=== PATIENT | female | born 1965 | race Caucasian/White ===

== ENCOUNTER → 2018-07-14 12:44 | Outpatient (CLI) | payer BC, SELFPAY ==
--- NOTE | 2018-07-14 | DI.RAD.S_ITS ---
PROCEDURE: XR FOOT RT MIN 3V INDICATIONS: right foot pain TECHNIQUE: 3 views of the foot were acquired. COMPARISON: None. FINDINGS: Bones: No fractures or dislocations. No suspicious bony lesions. Posterior calcaneal spurring. There is mild plantar flexion of the talus however the calcaneal pitch measures 17?. No definite hallux valgus. There is mild first MTP joint degeneration Soft tissues: No tibiotalar joint effusion. Achilles tendon appears normal. IMPRESSION: Posterior calcaneal spurring. Mild first MTP joint degeneration. Borderline pes planus No hallux valgus. Dictated by: Jono Estes M.D. on 07/14/2018 at 14:10 Approved by: Jono Estes M.D. on 07/14/2018 at 14:14
== END ==
PROVIDERS: Family Provider Physician Assistant; PCP Physician Assistant; Visit Provider Nurse Practitioner Family
DX: M79.671 Pain in right foot (principal); M77.31 Calcaneal spur, right foot; M19.071 Primary osteoarthritis, right ankle and foot
CPT/HCPCS: 73630

== ENCOUNTER 2019-03-23 07:30 | Outpatient (RCR) | payer BC, SELFPAY ==
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
--- NOTE | 2018-08-30 09:00 | PT.OPPOC ---
Current Diagnoses Unspecified dyspareunia (08/30/18) Vulvodynia, unspecified (08/30/18) Provider Visit Care Team Role Provider Type Elisabeth Kennedy PA-C Primary Care Provider Advanced Senior Controller Specialty: Family Practice Address: [address] [place] [address], [id number] Email: [email or web address] ADARSH Arenas Attending Provider Non-Staff Specialty: Medical Address: [address] [place] [address], [id number] Email: Plan Of Care PT-OP-T Assessment and Plan Start: 07/13/18 17:40 Freq: Status: Active Protocol: Document 08/30/18 09:00 AMB (Rec: 08/30/18 09:46 AMB [id number]) Physical Therapy Assessment Goals Three Impairment pelvic pain with intercourse Senior Living Goal (LTG) Shira is able to return to intercourse with her without complaints of pelvic pain or bladder spasms-- PROGRESS MADE LTG Duration 8 weeks Two Impairment pelvic floor weakness Senior Living Goal (LTG) After her pelvic floor is able to relax, Shira is able to tolerate a pelvic floor strengthening program for improved bladder support-- PROGRESS MADE LTG Duration 8 weeks One Impairment hypertonicity and guarding of the left lateral wall of the levator ani Short Term Goal (STG) Rosalina is able to fully relax her pelvic floor to decrease muscle guarding and pain and to begin to tolerate pelvic floor strengthening-- PROGRESS MADE STG Duration 6 weeks Assessment Summary Assessment Shira states that she is improving with PT, but continues to have pain with intercourse. Bladder spasms are seeming to improve, but adductor pain has been continuing. Pt has stopped core exercises, and now we are going to try to add some back in for her low back discmfort , without increasing her pelvic floor pain. Pt will benefit from continued PT as her left pelvic floor continues to be tight and painful, although it will relax with treatment and that relaxation has bee increasing in time between therapy sessions. Physical Therapy Plan Frequency and Duration Frequency of Treatment 1x/Week Duration of Treatment 8 weeks Plan of Care Start Date 08/30/18 Plan of Care End Date 10/25/18 Therapeutic Interventions Therapeutic Interventions Home Exercise Program Manual Therapy Neuromuscular Re-education Patient/Caregiver Education Self-Care/Home Management Soft Tissue Mobilization Therapeutic Exercises Modalities Biofeedback Next Visit Focus/Plan Next Note Type Treatment Note Next Visit Plan Try to slowly add in stabilization exercises with maintaining relaxation. Plan of Care Dates Plan of Care Start Date 08/30/18 Plan of Care End Date 10/25/18 Please Sign and Return: I have reviewed this Plan of Care and certify that the skilled therapy services above are required to meet the patient?s needs. Physician Signature Date Printed Name and Credentials Clinical Instructor Signature Printed Name and Credentials
--- NOTE | 2018-08-30 09:00 | PT.OTN ---
Current Diagnoses Unspecified dyspareunia (08/30/18) Vulvodynia, unspecified (08/30/18) Physical Therapy Treatment Note PT-OP-A Visit Information Start: 07/13/18 17:40 Freq: Status: Active Protocol: Document 08/30/18 09:00 AMB (Rec: 08/30/18 09:21 AMB [id number]) Out-Patient Physical Therapy Visit Information Visit Information Visit Type Progress Note Visit Start Time 09:00 Visit Stop Time 09:45 Total Visit Minutes 45 Visit Number 6 PT-OP-B Current Condition Start: 07/13/18 17:40 Freq: Status: Active Protocol: Document 07/18/18 17:03 AMH (Rec: 07/18/18 17:21 AMH [email or web address]) Current Condition History of Current Condition Onset Date chronic symptoms 20 years ago Current Complaints pelvic pain, bladder spasm, dyspareunia History of Current Condition Shira reports she had a hysterectomy at age 39 and had a infection following the hysterectomy that took 4-6 months to heal. She had to have a chemical burn treatment to help clear the infection and this caused a great deal of scar tissue on the left side of her pelvic wall. She reports since that time it feels like her bladder will spasm following intercourse and if she has waited too long to void. PT-OP-C Subjective Start: 07/13/18 17:40 Freq: Status: Active Protocol: Document 08/30/18 09:00 AMB (Rec: 08/30/18 09:21 AMB [id number]) OP-PT Subjective Patient Comments Patient Comments Pt feels she is about 30% improved. PT-OP-I Pelvic Floor Start: 07/13/18 17:40 Freq: Status: Active Protocol: Document 07/11/18 17:41 AMH (Rec: 07/13/18 18:06 AMH [email or web address]) Pelvic Floor Assessment Pelvic Clock Pelvic Clock 12-3 Guarding Pelvic Clock 3-6 Hypertonic Pelvic Clock 6-9 Guarding Pelvic Clock Other Shira is able to contract her pelvic floor but has a difficult time relaxing following a contraction. She is hypertonic in the left illiococcygeus Contraction Ability Manual Muscle Testing Left 3 Manual Muscle Testing Right 3 Manual Muscle Testing Anterior 3 Manual Muscle Testing Posterior 3 PT-OP-Q Treatments Start: 07/13/18 17:40 Freq: Status: Active Protocol: Document 08/30/18 09:00 AMB (Rec: 08/30/18 09:46 AMB [id number]) Manual Therapy Treatment Soft Tissue Mobilization 3 Body Location hip flexor release 2 Body Location MFR at the inferior gluteal fold 1 Body Location MFR for the left illiococcygeus PT-OP-T Assessment and Plan Start: 07/13/18 17:40 Freq: Status: Active Protocol: Document 08/30/18 09:00 AMB (Rec: 08/30/18 09:46 AMB [id number]) Physical Therapy Assessment Goals Three Impairment pelvic pain with intercourse Tire Service Technician Goal (LTG) Shira is able to return to intercourse with her without complaints of pelvic pain or bladder spasms-- PROGRESS MADE LTG Duration 8 weeks Two Impairment pelvic floor weakness Half-Way Goal (LTG) After her pelvic floor is able to relax, Shira is able to tolerate a pelvic floor strengthening program for improved bladder support-- PROGRESS MADE LTG Duration 8 weeks One Impairment hypertonicity and guarding of the left lateral wall of the levator ani Short Term Goal (STG) Rosalina is able to fully relax her pelvic floor to decrease muscle guarding and pain and to begin to tolerate pelvic floor strengthening-- PROGRESS MADE STG Duration 6 weeks Assessment Summary Assessment Shira states that she is improving with PT, but continues to have pain with intercourse. Bladder spasms are seeming to improve, but adductor pain has been continuing. Pt has stopped core exercises, and now we are going to try to add some back in for her low back discmfort , without increasing her pelvic floor pain. Pt will benefit from continued PT as her left pelvic floor continues to be tight and painful, although it will relax with treatment and that relaxation has bee increasing in time between therapy sessions. Physical Therapy Plan Frequency and Duration Frequency of Treatment 1x/Week Duration of Treatment 8 weeks Plan of Care Start Date 08/30/18 Plan of Care End Date 10/25/18 Therapeutic Interventions Therapeutic Interventions Home Exercise Program Manual Therapy Neuromuscular Re-education Patient/Caregiver Education Self-Care/Home Management Soft Tissue Mobilization Therapeutic Exercises Modalities Biofeedback Next Visit Focus/Plan Next Note Type Treatment Note Next Visit Plan Try to slowly add in stabilization exercises with maintaining relaxation.
--- NOTE | 2018-09-13 16:20 | PT.OTN ---
Current Diagnoses Unspecified dyspareunia (09/13/18) Vulvodynia, unspecified (09/13/18) Physical Therapy Treatment Note PT-OP-A Visit Information Start: 07/13/18 17:40 Freq: Status: Active Protocol: Document 09/13/18 09:00 AMB (Rec: 09/13/18 12:59 AMB [email or web address]) Out-Patient Physical Therapy Visit Information Visit Information Visit Type Treatment Note Visit Start Time 09:00 Visit Stop Time 09:45 Total Visit Minutes 45 Visit Number 7 Evaluation Information Evaluation Date 07/11/18 PT-OP-B Current Condition Start: 07/13/18 17:40 Freq: Status: Active Protocol: Document 07/18/18 17:03 AMH (Rec: 07/18/18 17:21 AMH [email or web address]) Current Condition History of Current Condition Onset Date chronic symptoms 20 years ago Current Complaints pelvic pain, bladder spasm, dyspareunia History of Current Condition Shira reports she had a hysterectomy at age 39 and had a infection following the hysterectomy that took 4-6 months to heal. She had to have a chemical burn treatment to help clear the infection and this caused a great deal of scar tissue on the left side of her pelvic wall. She reports since that time it feels like her bladder will spasm following intercourse and if she has waited too long to void. PT-OP-C Subjective Start: 07/13/18 17:40 Freq: Status: Active Protocol: Document 09/13/18 09:00 AMB (Rec: 09/13/18 12:59 AMB [email or web address]) OP-PT Subjective Patient Comments Patient Comments Pt reports she fell and hurt her low back/ SI. So she has been stretching, she does feel that is helpful. PT-OP-I Pelvic Floor Start: 07/13/18 17:40 Freq: Status: Active Protocol: Document 07/11/18 17:41 AMH (Rec: 07/13/18 18:06 AMH [email or web address]) Pelvic Floor Assessment Pelvic Clock Pelvic Clock 12-3 Guarding Pelvic Clock 3-6 Hypertonic Pelvic Clock 6-9 Guarding Pelvic Clock Other Shira is able to contract her pelvic floor but has a difficult time relaxing following a contraction. She is hypertonic in the left illiococcygeus Contraction Ability Manual Muscle Testing Left 3 Manual Muscle Testing Right 3 Manual Muscle Testing Anterior 3 Manual Muscle Testing Posterior 3 PT-OP-Q Treatments Start: 07/13/18 17:40 Freq: Status: Active Protocol: Document 09/13/18 09:00 AMB (Rec: 09/13/18 16:20 AMB [email or web address]) Therapeutic Exercises Supine Exercises 4 Supine Exercise Name hamstring adductor stretch 3 Supine Exercise Name iliopsoas stretch in nilesh test position Other Exercises 1 Other Exercise Name quadruped TrA Manual Therapy Treatment Soft Tissue Mobilization 3 Body Location hip flexor release 1 Body Location MFR for the left illiococcygeus Manual Techniques 1 Type pelvic floor contract relax with manual stretching PT-OP-T Assessment and Plan Start: 07/13/18 17:40 Freq: Status: Active Protocol: Document 09/13/18 09:00 AMB (Rec: 09/13/18 16:20 AMB [email or web address]) Physical Therapy Assessment Assessment Summary Assessment Pt continues to have L sided tightness, but considering her other orthopedic conditions is doing well. Did not progress significantly due to increased low back/ si pain. Physical Therapy Plan Next Visit Focus/Plan Next Note Type Treatment Note Next Visit Plan Progress stabilization exercises as tolerated
--- NOTE | 2018-09-20 15:43 | PT.OTN ---
Current Diagnoses Unspecified dyspareunia (09/20/18) Vulvodynia, unspecified (09/20/18) Physical Therapy Treatment Note PT-OP-A Visit Information Start: 07/13/18 17:40 Freq: Status: Active Protocol: Document 09/20/18 09:00 AMB (Rec: 09/20/18 09:08 AMB [id number]) Out-Patient Physical Therapy Visit Information Visit Information Visit Type Treatment Note Visit Start Time 09:00 Visit Stop Time 09:45 Total Visit Minutes 45 Visit Number 8 PT-OP-B Current Condition Start: 07/13/18 17:40 Freq: Status: Active Protocol: Document 07/18/18 17:03 AMH (Rec: 07/18/18 17:21 AMH [email or web address]) Current Condition History of Current Condition Onset Date chronic symptoms 20 years ago Current Complaints pelvic pain, bladder spasm, dyspareunia History of Current Condition Shira reports she had a hysterectomy at age 39 and had a infection following the hysterectomy that took 4-6 months to heal. She had to have a chemical burn treatment to help clear the infection and this caused a great deal of scar tissue on the left side of her pelvic wall. She reports since that time it feels like her bladder will spasm following intercourse and if she has waited too long to void. PT-OP-C Subjective Start: 07/13/18 17:40 Freq: Status: Active Protocol: Document 09/20/18 09:00 AMB (Rec: 09/20/18 09:08 AMB [id number]) OP-PT Subjective Patient Comments Patient Comments Tightness in inner thigh continues from back pain increase. More ability to relax after Kegel. PT-OP-I Pelvic Floor Start: 07/13/18 17:40 Freq: Status: Active Protocol: Document 07/11/18 17:41 AMH (Rec: 07/13/18 18:06 AMH [email or web address]) Pelvic Floor Assessment Pelvic Clock Pelvic Clock 12-3 Guarding Pelvic Clock 3-6 Hypertonic Pelvic Clock 6-9 Guarding Pelvic Clock Other Shira is able to contract her pelvic floor but has a difficult time relaxing following a contraction. She is hypertonic in the left illiococcygeus Contraction Ability Manual Muscle Testing Left 3 Manual Muscle Testing Right 3 Manual Muscle Testing Anterior 3 Manual Muscle Testing Posterior 3 PT-OP-Q Treatments Start: 07/13/18 17:40 Freq: Status: Active Protocol: Document 09/20/18 09:00 AMB (Rec: 09/20/18 15:43 AMB [email or web address]) Therapeutic Exercises Supine Exercises 4 Supine Exercise Name hamstring adductor stretch 3 Supine Exercise Name iliopsoas stretch in nilesh test position Manual Therapy Treatment Soft Tissue Mobilization 3 Body Location hip flexor release 1 Body Location MFR for the left illiococcygeus PT-OP-T Assessment and Plan Start: 07/13/18 17:40 Freq: Status: Active Protocol: Document 09/20/18 09:00 AMB (Rec: 09/20/18 15:43 AMB [email or web address]) Physical Therapy Assessment Assessment Summary Assessment Pain is centralizing well, but continues to have radiating pain into abdomen with deep palpation of iliococcygeus Physical Therapy Plan Frequency and Duration Frequency of Treatment 1x/Week Duration of Treatment 8 weeks Plan of Care Start Date 08/30/18 Plan of Care End Date 10/25/18 Next Visit Focus/Plan Next Note Type Treatment Note Next Visit Plan Progress stabilization exercises as tolerated
--- NOTE | 2018-09-27 10:04 | PT.OTN ---
Current Diagnoses Unspecified dyspareunia (09/27/18) Vulvodynia, unspecified (09/27/18) Physical Therapy Treatment Note PT-OP-A Visit Information Start: 07/13/18 17:40 Freq: Status: Active Protocol: Document 09/27/18 09:00 AMB (Rec: 09/27/18 10:02 AMB [email or web address]) Out-Patient Physical Therapy Visit Information Visit Information Visit Type Treatment Note Visit Start Time 09:00 Visit Stop Time 09:45 Total Visit Minutes 45 Visit Number 9 Evaluation Information Evaluation Date 07/11/18 PT-OP-B Current Condition Start: 07/13/18 17:40 Freq: Status: Active Protocol: Document 07/18/18 17:03 AMH (Rec: 07/18/18 17:21 AMH [email or web address]) Current Condition History of Current Condition Onset Date chronic symptoms 20 years ago Current Complaints pelvic pain, bladder spasm, dyspareunia History of Current Condition Shira reports she had a hysterectomy at age 39 and had a infection following the hysterectomy that took 4-6 months to heal. She had to have a chemical burn treatment to help clear the infection and this caused a great deal of scar tissue on the left side of her pelvic wall. She reports since that time it feels like her bladder will spasm following intercourse and if she has waited too long to void. PT-OP-C Subjective Start: 07/13/18 17:40 Freq: Status: Active Protocol: Document 09/27/18 09:00 AMB (Rec: 09/27/18 10:02 AMB [email or web address]) OP-PT Subjective Patient Comments Patient Comments Pt noticing decreased pain with intercourse but pain with back and in inner thighs continuing. PT-OP-I Pelvic Floor Start: 07/13/18 17:40 Freq: Status: Active Protocol: Document 07/11/18 17:41 AMH (Rec: 07/13/18 18:06 AMH [email or web address]) Pelvic Floor Assessment Pelvic Clock Pelvic Clock 12-3 Guarding Pelvic Clock 3-6 Hypertonic Pelvic Clock 6-9 Guarding Pelvic Clock Other Shira is able to contract her pelvic floor but has a difficult time relaxing following a contraction. She is hypertonic in the left illiococcygeus Contraction Ability Manual Muscle Testing Left 3 Manual Muscle Testing Right 3 Manual Muscle Testing Anterior 3 Manual Muscle Testing Posterior 3 PT-OP-Q Treatments Start: 07/13/18 17:40 Freq: Status: Active Protocol: Document 09/27/18 09:00 AMB (Rec: 09/27/18 10:02 AMB [email or web address]) Therapeutic Exercises Other Exercises 4 Other Exercise Name quadruped UE ext Reps/Minutes 10 Comments with focus on pelvic floor contract/ relax 2 Other Exercise Name cat cow Manual Therapy Treatment Soft Tissue Mobilization 3 Body Location hip flexor release 2 Body Location MFR at adductors 1 Body Location MFR for the left illiococcygeus Joint Mobilizations 1 Joint L AP at pubic symphysis Manual Traction Lumbar Details L long axis Reps/Duration 30x3 PT-OP-T Assessment and Plan Start: 07/13/18 17:40 Freq: Status: Active Protocol: Document 09/27/18 09:00 AMB (Rec: 09/27/18 10:04 AMB [email or web address]) Physical Therapy Assessment Goals Three Impairment pelvic pain with intercourse Pulmonologist Goal (LTG) Shira is able to return to intercourse with her without complaints of pelvic pain or bladder spasms-- PROGRESS MADE LTG Duration 8 weeks Two Impairment pelvic floor weakness Intermediate Goal (LTG) After her pelvic floor is able to relax, Shira is able to tolerate a pelvic floor strengthening program for improved bladder support-- PROGRESS MADE LTG Duration 8 weeks One Impairment hypertonicity and guarding of the left lateral wall of the levator ani Short Term Goal (STG) Rosalina is able to fully relax her pelvic floor to decrease muscle guarding and pain and to begin to tolerate pelvic floor strengthening-- PROGRESS MADE STG Duration 6 weeks Assessment Summary Assessment Pt with less pain internally, but spasms at adductors affect bladder spasms. Physical Therapy Plan Frequency and Duration Frequency of Treatment 1x/Week Duration of Treatment 8 weeks Plan of Care Start Date 08/30/18 Plan of Care End Date 10/25/18 Next Visit Focus/Plan Next Note Type Treatment Note Next Visit Plan Progress stabilization exercises as tolerated
--- NOTE | 2018-10-04 09:57 | PT.OTN ---
Current Diagnoses Unspecified dyspareunia (10/04/18) Vulvodynia, unspecified (10/04/18) Physical Therapy Treatment Note PT-OP-A Visit Information Start: 07/13/18 17:40 Freq: Status: Active Protocol: Document 10/04/18 09:45 AMB (Rec: 10/04/18 09:57 AMB [email or web address]) Out-Patient Physical Therapy Visit Information Visit Information Visit Type Treatment Note Visit Start Time 09:00 Visit Stop Time 09:45 Total Visit Minutes 45 Visit Number 10 PT-OP-B Current Condition Start: 07/13/18 17:40 Freq: Status: Active Protocol: Document 07/18/18 17:03 AMH (Rec: 07/18/18 17:21 AMH [email or web address]) Current Condition History of Current Condition Onset Date chronic symptoms 20 years ago Current Complaints pelvic pain, bladder spasm, dyspareunia History of Current Condition Shira reports she had a hysterectomy at age 39 and had a infection following the hysterectomy that took 4-6 months to heal. She had to have a chemical burn treatment to help clear the infection and this caused a great deal of scar tissue on the left side of her pelvic wall. She reports since that time it feels like her bladder will spasm following intercourse and if she has waited too long to void. PT-OP-C Subjective Start: 07/13/18 17:40 Freq: Status: Active Protocol: Document 10/04/18 09:45 AMB (Rec: 10/04/18 09:57 AMB [email or web address]) OP-PT Subjective Patient Comments Patient Comments Pt feels pelvic floor is getting better, but adductors continue to be a problem. PT-OP-I Pelvic Floor Start: 07/13/18 17:40 Freq: Status: Active Protocol: Document 07/11/18 17:41 AMH (Rec: 07/13/18 18:06 AMH [email or web address]) Pelvic Floor Assessment Pelvic Clock Pelvic Clock 12-3 Guarding Pelvic Clock 3-6 Hypertonic Pelvic Clock 6-9 Guarding Pelvic Clock Other Shira is able to contract her pelvic floor but has a difficult time relaxing following a contraction. She is hypertonic in the left illiococcygeus Contraction Ability Manual Muscle Testing Left 3 Manual Muscle Testing Right 3 Manual Muscle Testing Anterior 3 Manual Muscle Testing Posterior 3 PT-OP-Q Treatments Start: 07/13/18 17:40 Freq: Status: Active Protocol: Document 10/04/18 09:45 AMB (Rec: 10/04/18 09:57 AMB [email or web address]) Therapeutic Exercises Supine Exercises 4 Supine Exercise Name hamstring adductor stretch 3 Supine Exercise Name iliopsoas stretch in nilesh test position Manual Therapy Treatment Soft Tissue Mobilization 3 Body Location hip flexor release 2 Body Location MFR at adductors 1 Body Location MFR for the left illiococcygeus Joint Mobilizations 1 Joint L AP at pubic symphysis Manual Traction Lumbar Details L long axis Reps/Duration 30x3 PT-OP-T Assessment and Plan Start: 07/13/18 17:40 Freq: Status: Active Protocol: Document 10/04/18 09:45 AMB (Rec: 10/04/18 09:57 AMB [email or web address]) Physical Therapy Assessment Assessment Summary Assessment Tightness continues in R hip flexor, adductors, pubic alignment better after manual therapy. Physical Therapy Plan Next Visit Focus/Plan Next Note Type Treatment Note Next Visit Plan Progress stabilization exercises as tolerated, manual therapy for better pelvic alignment helpful
--- NOTE | 2018-10-11 13:10 | PT.OTN ---
Current Diagnoses Unspecified dyspareunia (10/11/18) Vulvodynia, unspecified (10/11/18) Physical Therapy Treatment Note PT-OP-A Visit Information Start: 07/13/18 17:40 Freq: Status: Active Protocol: Document 10/11/18 09:00 AMB (Rec: 10/11/18 09:50 AMB [id number]) Out-Patient Physical Therapy Visit Information Visit Information Visit Type Treatment Note Visit Start Time 09:00 Visit Stop Time 09:45 Total Visit Minutes 45 Visit Number 11 Evaluation Information Evaluation Date 07/11/18 PT-OP-B Current Condition Start: 07/13/18 17:40 Freq: Status: Active Protocol: Document 07/18/18 17:03 AMH (Rec: 07/18/18 17:21 AMH [email or web address]) Current Condition History of Current Condition Onset Date chronic symptoms 20 years ago Current Complaints pelvic pain, bladder spasm, dyspareunia History of Current Condition Shira reports she had a hysterectomy at age 39 and had a infection following the hysterectomy that took 4-6 months to heal. She had to have a chemical burn treatment to help clear the infection and this caused a great deal of scar tissue on the left side of her pelvic wall. She reports since that time it feels like her bladder will spasm following intercourse and if she has waited too long to void. PT-OP-C Subjective Start: 07/13/18 17:40 Freq: Status: Active Protocol: Document 10/11/18 09:00 AMB (Rec: 10/11/18 09:50 AMB [id number]) OP-PT Subjective Patient Comments Patient Comments The patient reports adductor pain is a little better, has not been working internally as much. PT-OP-I Pelvic Floor Start: 07/13/18 17:40 Freq: Status: Active Protocol: Document 07/11/18 17:41 AMH (Rec: 07/13/18 18:06 AMH [email or web address]) Pelvic Floor Assessment Pelvic Clock Pelvic Clock 12-3 Guarding Pelvic Clock 3-6 Hypertonic Pelvic Clock 6-9 Guarding Pelvic Clock Other Shira is able to contract her pelvic floor but has a difficult time relaxing following a contraction. She is hypertonic in the left illiococcygeus Contraction Ability Manual Muscle Testing Left 3 Manual Muscle Testing Right 3 Manual Muscle Testing Anterior 3 Manual Muscle Testing Posterior 3 PT-OP-Q Treatments Start: 07/13/18 17:40 Freq: Status: Active Protocol: Document 10/11/18 09:00 AMB (Rec: 10/11/18 13:10 AMB [id number]) Manual Therapy Treatment Soft Tissue Mobilization 3 Body Location hip flexor release 2 Body Location MFR at adductors 1 Body Location MFR for the left illiococcygeus Manual Traction Lumbar Details L long axis Reps/Duration 30x3 Manual Techniques 1 Type pelvic floor contract relax with manual stretching PT-OP-T Assessment and Plan Start: 07/13/18 17:40 Freq: Status: Active Protocol: Document 10/11/18 09:00 AMB (Rec: 10/11/18 13:10 AMB [id number]) Physical Therapy Assessment Assessment Summary Assessment L pelvic wall tightness is improving pt reports 5/10 pain with palpation, 9/10 when evaluated in the beginning. Physical Therapy Plan Next Visit Focus/Plan Next Note Type Treatment Note Next Visit Plan Progress stabilization exercises as tolerated, manual therapy for better pelvic alignment helpful
--- NOTE | 2018-10-19 15:11 | PT.OTN ---
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) Physical Therapy Treatment Note PT-OP-A Visit Information Start: 07/13/18 17:40 Freq: Status: Active Protocol: Document 10/19/18 08:15 AMB (Rec: 10/19/18 08:24 AMB [id number]) Out-Patient Physical Therapy Visit Information Visit Information Visit Type Treatment Note Visit Start Time 08:15 Visit Stop Time 09:00 Total Visit Minutes 45 Visit Number 12 PT-OP-B Current Condition Start: 07/13/18 17:40 Freq: Status: Active Protocol: Document 07/18/18 17:03 AMH (Rec: 07/18/18 17:21 AMH [email or web address]) Current Condition History of Current Condition Onset Date chronic symptoms 20 years ago Current Complaints pelvic pain, bladder spasm, dyspareunia History of Current Condition Shira reports she had a hysterectomy at age 39 and had a infection following the hysterectomy that took 4-6 months to heal. She had to have a chemical burn treatment to help clear the infection and this caused a great deal of scar tissue on the left side of her pelvic wall. She reports since that time it feels like her bladder will spasm following intercourse and if she has waited too long to void. PT-OP-C Subjective Start: 07/13/18 17:40 Freq: Status: Active Protocol: Document 10/19/18 08:15 AMB (Rec: 10/19/18 08:24 AMB [id number]) OP-PT Subjective Patient Comments Patient Comments The right sided back pain is worse this week. PT-OP-I Pelvic Floor Start: 07/13/18 17:40 Freq: Status: Active Protocol: Document 07/11/18 17:41 AMH (Rec: 07/13/18 18:06 AMH [email or web address]) Pelvic Floor Assessment Pelvic Clock Pelvic Clock 12-3 Guarding Pelvic Clock 3-6 Hypertonic Pelvic Clock 6-9 Guarding Pelvic Clock Other Shira is able to contract her pelvic floor but has a difficult time relaxing following a contraction. She is hypertonic in the left illiococcygeus Contraction Ability Manual Muscle Testing Left 3 Manual Muscle Testing Right 3 Manual Muscle Testing Anterior 3 Manual Muscle Testing Posterior 3 PT-OP-Q Treatments Start: 07/13/18 17:40 Freq: Status: Active Protocol: Document 10/19/18 08:15 AMB (Rec: 10/19/18 09:08 AMB [id number]) Therapeutic Exercises Supine Exercises 4 Supine Exercise Name hamstring adductor stretch 3 Supine Exercise Name iliopsoas stretch in nilesh test position Manual Therapy Treatment Soft Tissue Mobilization 3 Body Location hip flexor release 2 Body Location MFR at adductors 1 Body Location MFR for the left illiococcygeus Manual Traction Lumbar Details L long axis Reps/Duration 30x3 PT-OP-T Assessment and Plan Start: 07/13/18 17:40 Freq: Status: Active Protocol: Document 10/19/18 08:15 AMB (Rec: 10/19/18 15:10 AMB [email or web address]) Physical Therapy Assessment Goals Three Impairment pelvic pain with intercourse Senior Living Goal (LTG) Shira is able to return to intercourse with her without complaints of pelvic pain or bladder spasms-- PROGRESS MADE LTG Duration 8 weeks Two Impairment pelvic floor weakness Timber Mill Worker Goal (LTG) After her pelvic floor is able to relax, Shira is able to tolerate a pelvic floor strengthening program for improved bladder support-- PROGRESS MADE LTG Duration 8 weeks One Impairment hypertonicity and guarding of the left lateral wall of the levator ani Short Term Goal (STG) Rosalina is able to fully relax her pelvic floor to decrease muscle guarding and pain and to begin to tolerate pelvic floor strengthening-- PROGRESS MADE STG Duration 6 weeks Assessment Summary Assessment Shira's overall pelvic pain has improved significantly, but her back and right adductor pain have recently become flared and that increases her pelvic floor tension. We have added some of her lumbar stabilization exercises back in, but not all due to continued tension. Physical Therapy Plan Next Visit Focus/Plan Next Note Type Treatment Note Next Visit Plan Progress stabilization exercises without flaring tension.
--- NOTE | 2018-10-19 15:15 | PT.OPPOC ---
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) Provider Visit Care Team Role Provider Type Elisabeth Kennedy PA-C Primary Care Provider Advanced Equine Dentist Specialty: Family Practice Address: [address] [place] [address], [id number] Email: [email or web address] ADARSH Arenas Attending Provider Non-Staff Specialty: Medical Address: [address] [place] [address], [id number] Email: Plan Of Care PT-OP-T Assessment and Plan Start: 07/13/18 17:40 Freq: Status: Active Protocol: Document 10/19/18 08:15 AMB (Rec: 10/19/18 15:10 AMB [email or web address]) Physical Therapy Assessment Goals Three Impairment pelvic pain with intercourse Manager Of It Goal (LTG) Shira is able to return to intercourse with her without complaints of pelvic pain or bladder spasms-- PROGRESS MADE LTG Duration 8 weeks Two Impairment pelvic floor weakness Manager Of It Goal (LTG) After her pelvic floor is able to relax, Shira is able to tolerate a pelvic floor strengthening program for improved bladder support-- PROGRESS MADE LTG Duration 8 weeks One Impairment hypertonicity and guarding of the left lateral wall of the levator ani Short Term Goal (STG) Rosalina is able to fully relax her pelvic floor to decrease muscle guarding and pain and to begin to tolerate pelvic floor strengthening-- PROGRESS MADE STG Duration 6 weeks Assessment Summary Assessment Shira's overall pelvic pain has improved significantly, but her back and right adductor pain have recently become flared and that increases her pelvic floor tension. We have added some of her lumbar stabilization exercises back in, but not all due to continued tension. Physical Therapy Plan Frequency and Duration Frequency of Treatment 1x/Week Duration of Treatment 8 weeks Plan of Care Start Date 10/19/18 Plan of Care End Date 12/14/18 Therapeutic Interventions Therapeutic Interventions Home Exercise Program Manual Therapy Neuromuscular Re-education Patient/Caregiver Education Self-Care/Home Management Soft Tissue Mobilization Therapeutic Exercises Modalities Biofeedback Next Visit Focus/Plan Next Note Type Treatment Note Next Visit Plan Progress stabilization exercises without flaring tension. Plan of Care Dates Plan of Care Start Date 10/19/18 Plan of Care End Date 12/14/18 Please Sign and Return: I have reviewed this Plan of Care and certify that the skilled therapy services above are required to meet the patient?s needs. Physician Signature Date Printed Name and Credentials Clinical Instructor Signature Printed Name and Credentials
--- NOTE | 2018-11-08 15:18 | PT.OTN ---
Current Diagnoses Unspecified dyspareunia (11/08/18) Vulvodynia, unspecified (11/08/18) Physical Therapy Treatment Note PT-OP-A Visit Information Start: 07/13/18 17:40 Freq: Status: Active Protocol: Document 11/08/18 09:00 AMB (Rec: 11/08/18 09:09 AMB [id number]) Out-Patient Physical Therapy Visit Information Visit Information Visit Type Treatment Note Visit Start Time 09:00 Visit Stop Time 09:45 Total Visit Minutes 45 Visit Number 13 PT-OP-B Current Condition Start: 07/13/18 17:40 Freq: Status: Active Protocol: Document 07/18/18 17:03 AMH (Rec: 07/18/18 17:21 AMH [email or web address]) Current Condition History of Current Condition Onset Date chronic symptoms 20 years ago Current Complaints pelvic pain, bladder spasm, dyspareunia History of Current Condition Shira reports she had a hysterectomy at age 39 and had a infection following the hysterectomy that took 4-6 months to heal. She had to have a chemical burn treatment to help clear the infection and this caused a great deal of scar tissue on the left side of her pelvic wall. She reports since that time it feels like her bladder will spasm following intercourse and if she has waited too long to void. PT-OP-C Subjective Start: 07/13/18 17:40 Freq: Status: Active Protocol: Document 11/08/18 09:00 AMB (Rec: 11/08/18 09:09 AMB [id number]) OP-PT Subjective Patient Comments Patient Comments Bladder spasms 2x on the trip. Left side didn't get worse on trip. PT-OP-I Pelvic Floor Start: 07/13/18 17:40 Freq: Status: Active Protocol: Document 07/11/18 17:41 AMH (Rec: 07/13/18 18:06 AMH [email or web address]) Pelvic Floor Assessment Pelvic Clock Pelvic Clock 12-3 Guarding Pelvic Clock 3-6 Hypertonic Pelvic Clock 6-9 Guarding Pelvic Clock Other Shira is able to contract her pelvic floor but has a difficult time relaxing following a contraction. She is hypertonic in the left illiococcygeus Contraction Ability Manual Muscle Testing Left 3 Manual Muscle Testing Right 3 Manual Muscle Testing Anterior 3 Manual Muscle Testing Posterior 3 PT-OP-Q Treatments Start: 07/13/18 17:40 Freq: Status: Active Protocol: Document 11/08/18 09:00 AMB (Rec: 11/09/18 15:17 AMB [email or web address]) Therapeutic Exercises Other Exercises 5 Other Exercise Name quadruped LE ext Reps/Minutes 10 4 Other Exercise Name quadruped UE ext Reps/Minutes 10 Comments with focus on pelvic floor contract/ relax 2 Other Exercise Name cat cow Manual Therapy Treatment Soft Tissue Mobilization 3 Body Location hip flexor release 2 Body Location MFR at adductors 1 Body Location MFR for the left and right illiococcygeus PT-OP-T Assessment and Plan Start: 07/13/18 17:40 Freq: Status: Active Protocol: Document 11/08/18 09:00 AMB (Rec: 11/08/18 09:46 AMB [id number]) Physical Therapy Assessment Assessment Summary Assessment Pt doing well, but R side of levator was sore today. Instructed to add hip extension, ER, abduction back into stability training. Physical Therapy Plan Next Visit Focus/Plan Next Note Type Treatment Note Next Visit Plan Progress stabilization exercises without flaring tension.
--- NOTE | 2018-11-15 08:20 | PT.OTN ---
Current Diagnoses Unspecified dyspareunia (11/15/18) Vulvodynia, unspecified (11/15/18) Physical Therapy Treatment Note PT-OP-A Visit Information Start: 07/13/18 17:40 Freq: Status: Active Protocol: Document 11/15/18 07:30 AMB (Rec: 11/15/18 08:12 AMB [id number]) Out-Patient Physical Therapy Visit Information Visit Information Visit Type Treatment Note Visit Start Time 09:00 Visit Stop Time 09:45 Total Visit Minutes 45 Visit Number 14 PT-OP-B Current Condition Start: 07/13/18 17:40 Freq: Status: Active Protocol: Document 07/18/18 17:03 AMH (Rec: 07/18/18 17:21 AMH [email or web address]) Current Condition History of Current Condition Onset Date chronic symptoms 20 years ago Current Complaints pelvic pain, bladder spasm, dyspareunia History of Current Condition Shira reports she had a hysterectomy at age 39 and had a infection following the hysterectomy that took 4-6 months to heal. She had to have a chemical burn treatment to help clear the infection and this caused a great deal of scar tissue on the left side of her pelvic wall. She reports since that time it feels like her bladder will spasm following intercourse and if she has waited too long to void. PT-OP-C Subjective Start: 07/13/18 17:40 Freq: Status: Active Protocol: Document 11/15/18 07:30 AMB (Rec: 11/15/18 08:12 AMB [id number]) OP-PT Subjective Patient Comments Patient Comments Pt continues to notice groin pain. PT-OP-I Pelvic Floor Start: 07/13/18 17:40 Freq: Status: Active Protocol: Document 07/11/18 17:41 AMH (Rec: 07/13/18 18:06 AMH [email or web address]) Pelvic Floor Assessment Pelvic Clock Pelvic Clock 12-3 Guarding Pelvic Clock 3-6 Hypertonic Pelvic Clock 6-9 Guarding Pelvic Clock Other Shira is able to contract her pelvic floor but has a difficult time relaxing following a contraction. She is hypertonic in the left illiococcygeus Contraction Ability Manual Muscle Testing Left 3 Manual Muscle Testing Right 3 Manual Muscle Testing Anterior 3 Manual Muscle Testing Posterior 3 PT-OP-Q Treatments Start: 07/13/18 17:40 Freq: Status: Active Protocol: Document 11/15/18 07:30 AMB (Rec: 11/15/18 08:20 AMB [id number]) Therapeutic Exercises Supine Exercises 4 Supine Exercise Name hamstring adductor stretch 3 Supine Exercise Name iliopsoas stretch in nilesh test position 2 Supine Exercise Name bridge Other Exercises 5 Other Exercise Name quadruped LE ext Reps/Minutes 10 Manual Therapy Treatment Soft Tissue Mobilization 3 Body Location hip flexor release 2 Body Location MFR at adductors PT-OP-T Assessment and Plan Start: 07/13/18 17:40 Freq: Status: Active Protocol: Document 11/15/18 07:30 AMB (Rec: 11/15/18 08:20 AMB [id number]) Physical Therapy Assessment Assessment Summary Assessment Pt felt SI belt was helpful, in reducing both back and adductor pain. Physical Therapy Plan Next Visit Focus/Plan Next Note Type Treatment Note Next Visit Plan Progress stabilization exercises without flaring tension.
--- NOTE | 2018-11-22 10:09 | PT.OTN ---
Current Diagnoses Unspecified dyspareunia (11/22/18) Vulvodynia, unspecified (11/22/18) Physical Therapy Treatment Note PT-OP-A Visit Information Start: 07/13/18 17:40 Freq: Status: Active Protocol: Document 11/22/18 08:15 AMB (Rec: 11/22/18 08:24 AMB [id number]) Out-Patient Physical Therapy Visit Information Visit Information Visit Type Treatment Note Visit Start Time 08:15 Visit Stop Time 09:00 Total Visit Minutes 45 Visit Number 15 PT-OP-B Current Condition Start: 07/13/18 17:40 Freq: Status: Active Protocol: Document 07/18/18 17:03 AMH (Rec: 07/18/18 17:21 AMH [email or web address]) Current Condition History of Current Condition Onset Date chronic symptoms 20 years ago Current Complaints pelvic pain, bladder spasm, dyspareunia History of Current Condition Shira reports she had a hysterectomy at age 39 and had a infection following the hysterectomy that took 4-6 months to heal. She had to have a chemical burn treatment to help clear the infection and this caused a great deal of scar tissue on the left side of her pelvic wall. She reports since that time it feels like her bladder will spasm following intercourse and if she has waited too long to void. PT-OP-C Subjective Start: 07/13/18 17:40 Freq: Status: Active Protocol: Document 11/22/18 08:15 AMB (Rec: 11/22/18 08:24 AMB [id number]) OP-PT Subjective Patient Comments Patient Comments Pt has not been using dilator per our discussion to try to d /c it and see if her tension increases. PT-OP-I Pelvic Floor Start: 07/13/18 17:40 Freq: Status: Active Protocol: Document 07/11/18 17:41 AMH (Rec: 07/13/18 18:06 AMH [email or web address]) Pelvic Floor Assessment Pelvic Clock Pelvic Clock 12-3 Guarding Pelvic Clock 3-6 Hypertonic Pelvic Clock 6-9 Guarding Pelvic Clock Other Shira is able to contract her pelvic floor but has a difficult time relaxing following a contraction. She is hypertonic in the left illiococcygeus Contraction Ability Manual Muscle Testing Left 3 Manual Muscle Testing Right 3 Manual Muscle Testing Anterior 3 Manual Muscle Testing Posterior 3 PT-OP-Q Treatments Start: 07/13/18 17:40 Freq: Status: Active Protocol: Document 11/22/18 08:15 AMB (Rec: 11/22/18 10:09 AMB [email or web address]) Manual Therapy Treatment Soft Tissue Mobilization 2 Body Location MFR at adductors 1 Body Location MFR for the left and right illiococcygeus PT-OP-T Assessment and Plan Start: 07/13/18 17:40 Freq: Status: Active Protocol: Document 11/22/18 08:15 AMB (Rec: 11/22/18 10:09 AMB [email or web address]) Physical Therapy Assessment Assessment Summary Assessment Pt is noticing signigicantly less soreness on the left, but there is still some lingering tenderness bilaterally. Physical Therapy Plan Next Visit Focus/Plan Next Note Type Treatment Note Next Visit Plan Assess not using dilator
--- NOTE | 2018-11-29 09:28 | PT.OTN ---
Current Diagnoses Unspecified dyspareunia (11/29/18) Vulvodynia, unspecified (11/29/18) Physical Therapy Treatment Note PT-OP-A Visit Information Start: 07/13/18 17:40 Freq: Status: Active Protocol: Document 11/29/18 08:15 AMB (Rec: 11/29/18 08:38 AMB [id number]) Out-Patient Physical Therapy Visit Information Visit Information Visit Type Treatment Note Visit Start Time 08:15 Visit Stop Time 09:00 Total Visit Minutes 45 Visit Number 16 PT-OP-B Current Condition Start: 07/13/18 17:40 Freq: Status: Active Protocol: Document 07/18/18 17:03 AMH (Rec: 07/18/18 17:21 AMH [email or web address]) Current Condition History of Current Condition Onset Date chronic symptoms 20 years ago Current Complaints pelvic pain, bladder spasm, dyspareunia History of Current Condition Shira reports she had a hysterectomy at age 39 and had a infection following the hysterectomy that took 4-6 months to heal. She had to have a chemical burn treatment to help clear the infection and this caused a great deal of scar tissue on the left side of her pelvic wall. She reports since that time it feels like her bladder will spasm following intercourse and if she has waited too long to void. PT-OP-C Subjective Start: 07/13/18 17:40 Freq: Status: Active Protocol: Document 11/29/18 08:15 AMB (Rec: 11/29/18 08:38 AMB [id number]) OP-PT Subjective Patient Comments Patient Comments Pt has been doing her exercises and things have been going well. PT-OP-I Pelvic Floor Start: 07/13/18 17:40 Freq: Status: Active Protocol: Document 07/11/18 17:41 AMH (Rec: 07/13/18 18:06 AMH [email or web address]) Pelvic Floor Assessment Pelvic Clock Pelvic Clock 12-3 Guarding Pelvic Clock 3-6 Hypertonic Pelvic Clock 6-9 Guarding Pelvic Clock Other Shira is able to contract her pelvic floor but has a difficult time relaxing following a contraction. She is hypertonic in the left illiococcygeus Contraction Ability Manual Muscle Testing Left 3 Manual Muscle Testing Right 3 Manual Muscle Testing Anterior 3 Manual Muscle Testing Posterior 3 PT-OP-Q Treatments Start: 09/13/18 17:40 Freq: Status: Active Protocol: Document 11/29/18 08:15 AMB (Rec: 11/29/18 09:28 AMB [email or web address]) Therapeutic Exercises Supine Exercises 4 Supine Exercise Name hamstring adductor stretch 3 Supine Exercise Name iliopsoas stretch in nilesh test position 2 Supine Exercise Name bridge 1 Supine Exercise Name supine march Sidelying Exercises 1 Sidelying Exercise Name hip abduction Reps/Minutes 2x10 Manual Therapy Treatment Soft Tissue Mobilization 2 Body Location MFR at adductors 1 Body Location MFR for the left and right illiococcygeus PT-OP-T Assessment and Plan Start: 07/13/18 17:40 Freq: Status: Active Protocol: Document 11/29/18 08:15 AMB (Rec: 11/29/18 09:28 AMB [email or web address]) Physical Therapy Assessment Assessment Summary Assessment Pt is feeling better, not as painful with intercourse, but does notice discomfort with some positions. Physical Therapy Plan Next Visit Focus/Plan Next Note Type Treatment Note Next Visit Plan Progress stabilization exercises without flaring tension.
--- NOTE | 2018-12-13 13:12 | PT.OIE ---
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) Past Medical History (Last Reviewed 04/25/18 @ 11:20 by Elisabeth Kennedy PA-C) Chronic low back pain (Chronic Unknown) Marixa's disease (Chronic Unknown) Hypothyroidism (Chronic Unknown) Past Surgical History (Last Reviewed 04/25/18 @ 11:20 by Elisabeth Kennedy PA-C) Hx of cholecystectomy (Resolved 2003) Hx of dilation and curettage (Resolved 09/2003) Hx of hysterectomy (Resolved 08/2004) Hx of shoulder surgery (Resolved 2012) Hx of vein stripping (Resolved 2000) Provider Visit Care Team Role Provider Type Elisabeth Kennedy PA-C Primary Care Provider Advanced Revenue Enforcement Agent Specialty: Family [facility] Address: [address] [place] [address] Email: [email or web address] ADARSH Arenas Attending Provider Non-Staff Specialty: Medical Address: [address] [place] [address], [facility] Email: Physical Therapy Initial Evaluation PT-OP-A Visit Information Start: 07/13/18 17:40 Freq: Status: Active Protocol: Document 12/13/18 09:00 AMB (Rec: 12/13/18 09:19 AMB [id number]) Out-Patient Physical Therapy Visit Information Visit Information Visit Type Treatment Note Visit Start Time 09:00 Visit Stop Time 09:45 Total Visit Minutes 45 Visit Number 17 PT-OP-B Current Condition Start: 07/13/18 17:40 Freq: Status: Active Protocol: Document 07/18/18 17:03 AMH (Rec: 07/18/18 17:21 AMH [email or web address]) Current Condition History of Current Condition Onset Date chronic symptoms 20 years ago Current Complaints pelvic pain, bladder spasm, dyspareunia History of Current Condition Shira reports she had a hysterectomy at age 39 and had a infection following the hysterectomy that took 4-6 months to heal. She had to have a chemical burn treatment to help clear the infection and this caused a great deal of scar tissue on the left side of her pelvic wall. She reports since that time it feels like her bladder will spasm following intercourse and if she has waited too long to void. PT-OP-C Subjective Start: 07/13/18 17:40 Freq: Status: Active Protocol: Document 12/13/18 09:00 AMB (Rec: 12/13/18 09:19 AMB [id number]) OP-PT Subjective Patient Comments Patient Comments Pt doing well with intercourse on day 1, but if they have intercourse the second day that is quite painful. PT-OP-I Pelvic Floor Start: 07/13/18 17:40 Freq: Status: Active Protocol: Document 07/11/18 17:41 AMH (Rec: 07/13/18 18:06 AMH [email or web address]) Pelvic Floor Assessment Pelvic Clock Pelvic Clock 12-3 Guarding Pelvic Clock 3-6 Hypertonic Pelvic Clock 6-9 Guarding Pelvic Clock Other Shira is able to contract her pelvic floor but has a difficult time relaxing following a contraction. She is hypertonic in the left illiococcygeus Contraction Ability Manual Muscle Testing Left 3 Manual Muscle Testing Right 3 Manual Muscle Testing Anterior 3 Manual Muscle Testing Posterior 3 PT-OP-Q Treatments Start: 07/13/18 17:40 Freq: Status: Active Protocol: Document 12/13/18 09:00 AMB (Rec: 12/13/18 13:12 AMB [id number]) Therapeutic Exercises Supine Exercises 4 Supine Exercise Name hamstring adductor stretch 3 Supine Exercise Name iliopsoas stretch in nilesh test position Manual Therapy Treatment Soft Tissue Mobilization 3 Body Location hip flexor release 2 Body Location MFR at adductors 1 Body Location MFR for the left and right illiococcygeus PT-OP-T Assessment and Plan Start: 07/13/18 17:40 Freq: Status: Active Protocol: Document 12/13/18 09:00 AMB (Rec: 12/13/18 09:47 AMB [id number]) Physical Therapy Assessment Goals Three Impairment pelvic pain with intercourse Long-Term Goal (LTG) Shira is able to return to intercourse with her without complaints of pelvic pain or bladder spasms-- PROGRESS MADE LTG Duration 8 weeks Two Impairment pelvic floor weakness Machinist Class B Goal (LTG) After her pelvic floor is able to relax, Shira is able to tolerate a pelvic floor strengthening program for improved bladder support-- PROGRESS MADE LTG Duration 8 weeks One Impairment hypertonicity and guarding of the left lateral wall of the levator ani Short Term Goal (STG) Rosalina is able to fully relax her pelvic floor to decrease muscle guarding and pain and to begin to tolerate pelvic floor strengthening-- PROGRESS MADE STG Duration 6 weeks Assessment Summary Assessment Pt is concerned she is starting to plateau. Overall she has improved well, where she can have intercourse without pain. However she continues to have pain with intercourse if she engages in that activity two days in a row. The patient's back pain is playing a role in her internal pain, now instead of the left side being quite painful, both sides are fairly equal, but she does have low levels of pain on the right side too (which is the side of her back pain). She will benefit from continued physical therapy to maximize her function and take her chronic back pain into account with her internal pain. May have to return to dilator use if pt continues to feel that she is plateauing. Physical Therapy Plan Frequency and Duration Frequency of Treatment 1x/Week Duration of Treatment 6 weeks Plan of Care Start Date 12/13/18 Plan of Care End Date 01/24/19 Next Visit Focus/Plan Next Note Type Treatment Note Next Visit Plan Progress stabilization exercises without flaring tension.
--- NOTE | 2018-12-13 13:15 | PT.OTN ---
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) Physical Therapy Treatment Note PT-OP-A Visit Information Start: 07/13/18 17:40 Freq: Status: Active Protocol: Document 12/13/18 09:00 AMB (Rec: 12/13/18 09:19 AMB [id number]) Out-Patient Physical Therapy Visit Information Visit Information Visit Type Treatment Note Visit Start Time 09:00 Visit Stop Time 09:45 Total Visit Minutes 45 Visit Number 17 PT-OP-B Current Condition Start: 07/13/18 17:40 Freq: Status: Active Protocol: Document 07/18/18 17:03 AMH (Rec: 07/18/18 17:21 AMH [id number]) Current Condition History of Current Condition Onset Date chronic symptoms 20 years ago Current Complaints pelvic pain, bladder spasm, dyspareunia History of Current Condition Shira reports she had a hysterectomy at age 39 and had a infection following the hysterectomy that took 4-6 months to heal. She had to have a chemical burn treatment to help clear the infection and this caused a great deal of scar tissue on the left side of her pelvic wall. She reports since that time it feels like her bladder will spasm following intercourse and if she has waited too long to void. PT-OP-C Subjective Start: 07/13/18 17:40 Freq: Status: Active Protocol: Document 12/13/18 09:00 AMB (Rec: 12/13/18 09:19 AMB [id number]) OP-PT Subjective Patient Comments Patient Comments Pt doing well with intercourse on day 1, but if they have intercourse the second day that is quite painful. PT-OP-I Pelvic Floor Start: 07/13/18 17:40 Freq: Status: Active Protocol: Document 07/11/18 17:41 AMH (Rec: 07/13/18 18:06 AMH [email or web address]) Pelvic Floor Assessment Pelvic Clock Pelvic Clock 12-3 Guarding Pelvic Clock 3-6 Hypertonic Pelvic Clock 6-9 Guarding Pelvic Clock Other Shira is able to contract her pelvic floor but has a difficult time relaxing following a contraction. She is hypertonic in the left illiococcygeus Contraction Ability Manual Muscle Testing Left 3 Manual Muscle Testing Right 3 Manual Muscle Testing Anterior 3 Manual Muscle Testing Posterior 3 PT-OP-Q Treatments Start: 07/13/18 17:40 Freq: Status: Active Protocol: Document 12/13/18 09:00 AMB (Rec: 12/13/18 13:12 AMB [id number]) Therapeutic Exercises Supine Exercises 4 Supine Exercise Name hamstring adductor stretch 3 Supine Exercise Name iliopsoas stretch in nilesh test position Manual Therapy Treatment Soft Tissue Mobilization 3 Body Location hip flexor release 2 Body Location MFR at adductors 1 Body Location MFR for the left and right illiococcygeus PT-OP-T Assessment and Plan Start: 07/13/18 17:40 Freq: Status: Active Protocol: Document 12/13/18 09:00 AMB (Rec: 12/13/18 09:47 AMB [id number]) Physical Therapy Assessment Goals Three Impairment pelvic pain with intercourse Drilling Assistant Goal (LTG) Shira is able to return to intercourse with her without complaints of pelvic pain or bladder spasms-- PROGRESS MADE LTG Duration 8 weeks Two Impairment pelvic floor weakness Assisted Goal (LTG) After her pelvic floor is able to relax, Shira is able to tolerate a pelvic floor strengthening program for improved bladder support-- PROGRESS MADE LTG Duration 8 weeks One Impairment hypertonicity and guarding of the left lateral wall of the levator ani Short Term Goal (STG) Rosalina is able to fully relax her pelvic floor to decrease muscle guarding and pain and to begin to tolerate pelvic floor strengthening-- PROGRESS MADE STG Duration 6 weeks Assessment Summary Assessment Pt is concerned she is starting to plateau. Overall she has improved well, where she can have intercourse without pain. However she continues to have pain with intercourse if she engages in that activity two days in a row. The patient's back pain is playing a role in her internal pain, now instead of the left side being quite painful, both sides are fairly equal, but she does have low levels of pain on the right side too (which is the side of her back pain). She will benefit from continued physical therapy to maximize her function and take her chronic back pain into account with her internal pain. May have to return to dilator use if pt continues to feel that she is plateauing. Physical Therapy Plan Frequency and Duration Frequency of Treatment 1x/Week Duration of Treatment 6 weeks Plan of Care Start Date 12/13/18 Plan of Care End Date 01/24/19 Next Visit Focus/Plan Next Note Type Treatment Note Next Visit Plan Progress stabilization exercises without flaring tension.
--- NOTE | 2018-12-13 13:15 | PT.OPPOC ---
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) Provider Visit Care Team Role Provider Type Elisabeth Kennedy PA-C Primary Care Provider Advanced Technical Support Intern Specialty: Family Practice Address: [address] [place] [address], [id number] Email: [email or web address] ADARSH Arenas Attending Provider Non-Staff Specialty: Medical Address: [address] [place] [address], [id number] Email: Plan Of Care PT-OP-T Assessment and Plan Start: 07/13/18 17:40 Freq: Status: Active Protocol: Document 12/13/18 09:00 AMB (Rec: 12/13/18 09:47 AMB [id number]) Physical Therapy Assessment Goals Three Impairment pelvic pain with intercourse Usp Goal (LTG) Shira is able to return to intercourse with her without complaints of pelvic pain or bladder spasms-- PROGRESS MADE LTG Duration 8 weeks Two Impairment pelvic floor weakness Usp Goal (LTG) After her pelvic floor is able to relax, Shira is able to tolerate a pelvic floor strengthening program for improved bladder support-- PROGRESS MADE LTG Duration 8 weeks One Impairment hypertonicity and guarding of the left lateral wall of the levator ani Short Term Goal (STG) Rosalina is able to fully relax her pelvic floor to decrease muscle guarding and pain and to begin to tolerate pelvic floor strengthening-- PROGRESS MADE STG Duration 6 weeks Assessment Summary Assessment Pt is concerned she is starting to plateau. Overall she has improved well, where she can have intercourse without pain. However she continues to have pain with intercourse if she engages in that activity two days in a row. The patient's back pain is playing a role in her internal pain, now instead of the left side being quite painful, both sides are fairly equal, but she does have low levels of pain on the right side too (which is the side of her back pain). She will benefit from continued physical therapy to maximize her function and take her chronic back pain into account with her internal pain. May have to return to dilator use if pt continues to feel that she is plateauing. Physical Therapy Plan Frequency and Duration Frequency of Treatment 1x/Week Duration of Treatment 6 weeks Plan of Care Start Date 12/13/18 Plan of Care End Date 01/24/19 Next Visit Focus/Plan Next Note Type Treatment Note Next Visit Plan Progress stabilization exercises without flaring tension. Plan of Care Dates Plan of Care Start Date 12/13/18 Plan of Care End Date 01/24/19 Please Sign and Return: I have reviewed this Plan of Care and certify that the skilled therapy services above are required to meet the patient?s needs. Physician Signature Date Printed Name and Credentials Clinical Instructor Signature Printed Name and Credentials
--- NOTE | 2018-12-29 10:46 | PT.OTN ---
Current Diagnoses Unspecified dyspareunia (12/29/18) Vulvodynia, unspecified (12/29/18) Physical Therapy Treatment Note PT-OP-A Visit Information Start: 07/13/18 17:40 Freq: Status: Active Protocol: Document 12/29/18 07:30 AMB (Rec: 12/29/18 08:07 AMB [id number]) Out-Patient Physical Therapy Visit Information Visit Information Visit Type Treatment Note Visit Start Time 07:30 Visit Stop Time 08:15 Total Visit Minutes 45 Visit Number 18 PT-OP-B Current Condition Start: 07/13/18 17:40 Freq: Status: Active Protocol: Document 07/18/18 17:03 AMH (Rec: 07/18/18 17:21 AMH [email or web address]) Current Condition History of Current Condition Onset Date chronic symptoms 20 years ago Current Complaints pelvic pain, bladder spasm, dyspareunia History of Current Condition Shira reports she had a hysterectomy at age 39 and had a infection following the hysterectomy that took 4-6 months to heal. She had to have a chemical burn treatment to help clear the infection and this caused a great deal of scar tissue on the left side of her pelvic wall. She reports since that time it feels like her bladder will spasm following intercourse and if she has waited too long to void. PT-OP-C Subjective Start: 07/13/18 17:40 Freq: Status: Active Protocol: Document 12/29/18 07:30 AMB (Rec: 12/29/18 08:07 AMB [id number]) OP-PT Subjective Patient Comments Patient Comments Pt noticing increased R medial thigh burning pain which she feels is related to taking longer walks. This increases her dyspareunia when it is flared up. PT-OP-I Pelvic Floor Start: 07/13/18 17:40 Freq: Status: Active Protocol: Document 07/11/18 17:41 AMH (Rec: 07/13/18 18:06 AMH [email or web address]) Pelvic Floor Assessment Pelvic Clock Pelvic Clock 12-3 Guarding Pelvic Clock 3-6 Hypertonic Pelvic Clock 6-9 Guarding Pelvic Clock Other Shira is able to contract her pelvic floor but has a difficult time relaxing following a contraction. She is hypertonic in the left illiococcygeus Contraction Ability Manual Muscle Testing Left 3 Manual Muscle Testing Right 3 Manual Muscle Testing Anterior 3 Manual Muscle Testing Posterior 3 PT-OP-Q Treatments Start: 07/13/18 17:40 Freq: Status: Active Protocol: Document 12/29/18 07:30 AMB (Rec: 12/29/18 08:19 AMB [id number]) Therapeutic Exercises Supine Exercises 4 Supine Exercise Name hamstring adductor stretch Sidelying Exercises 1 Sidelying Exercise Name hip abduction Reps/Minutes 2x10 Other Exercises 4 Other Exercise Name full plank 3 Other Exercise Name side plank Manual Therapy Treatment Soft Tissue Mobilization 3 Body Location hip flexor release 2 Body Location MFR at adductors PT-OP-T Assessment and Plan Start: 07/13/18 17:40 Freq: Status: Active Protocol: Document 12/29/18 07:30 AMB (Rec: 12/29/18 09:46 AMB [email or web address]) Physical Therapy Assessment Assessment Summary Assessment Pt did not tolerate planks very well, but was weak with hip abduction, especially on the left. So added hip abd to HEP. Physical Therapy Plan Next Visit Focus/Plan Next Note Type Treatment Note Next Visit Plan Progress stabilization exercises without flaring tension.
--- NOTE | 2019-01-19 08:51 | PT.OTN ---
Current Diagnoses Unspecified dyspareunia (01/19/19) Vulvodynia, unspecified (01/19/19) Physical Therapy Treatment Note PT-OP-A Visit Information Start: 07/13/18 17:40 Freq: Status: Active Protocol: Document 01/19/19 07:30 AMB (Rec: 01/19/19 08:10 AMB [id number]) Out-Patient Physical Therapy Visit Information Visit Information Visit Type Progress Note Visit Start Time 07:30 Visit Stop Time 08:15 Total Visit Minutes 45 Visit Number 19 PT-OP-B Current Condition Start: 07/13/18 17:40 Freq: Status: Active Protocol: Document 07/18/18 17:03 AMH (Rec: 07/18/18 17:21 AMH [email or web address]) Current Condition History of Current Condition Onset Date chronic symptoms 20 years ago Current Complaints pelvic pain, bladder spasm, dyspareunia History of Current Condition Shira reports she had a hysterectomy at age 39 and had a infection following the hysterectomy that took 4-6 months to heal. She had to have a chemical burn treatment to help clear the infection and this caused a great deal of scar tissue on the left side of her pelvic wall. She reports since that time it feels like her bladder will spasm following intercourse and if she has waited too long to void. PT-OP-C Subjective Start: 07/13/18 17:40 Freq: Status: Active Protocol: Document 01/19/19 07:30 AMB (Rec: 01/19/19 08:10 AMB [id number]) OP-PT Subjective Patient Comments Patient Comments Pt has been doing ok, not doing internal manual releases , but has been doing stretches . PT-OP-I Pelvic Floor Start: 07/13/18 17:40 Freq: Status: Active Protocol: Document 07/11/18 17:41 AMH (Rec: 07/13/18 18:06 AMH [email or web address]) Pelvic Floor Assessment Pelvic Clock Pelvic Clock 12-3 Guarding Pelvic Clock 3-6 Hypertonic Pelvic Clock 6-9 Guarding Pelvic Clock Other Shira is able to contract her pelvic floor but has a difficult time relaxing following a contraction. She is hypertonic in the left illiococcygeus Contraction Ability Manual Muscle Testing Left 3 Manual Muscle Testing Right 3 Manual Muscle Testing Anterior 3 Manual Muscle Testing Posterior 3 PT-OP-Q Treatments Start: 07/13/18 17:40 Freq: Status: Active Protocol: Document 01/19/19 07:30 AMB (Rec: 01/19/19 08:45 AMB [id number]) Manual Therapy Treatment Soft Tissue Mobilization 3 Body Location hip flexor release 1 Body Location MFR for the left and right illiococcygeus Comments added obterator bilaterally PT-OP-T Assessment and Plan Start: 07/13/18 17:40 Freq: Status: Active Protocol: Document 01/19/19 07:30 AMB (Rec: 01/19/19 08:14 AMB [id number]) Physical Therapy Assessment Goals Three Impairment pelvic pain with intercourse Slicing Machine Tender Goal (LTG) Shira is able to return to intercourse with her without complaints of pelvic pain or bladder spasms-- PROGRESS MADE LTG Duration 8 weeks Two Impairment pelvic floor weakness Correction Goal (LTG) After her pelvic floor is able to relax, Shira is able to tolerate a pelvic floor strengthening program for improved bladder support-- PROGRESS MADE LTG Duration 8 weeks One Impairment hypertonicity and guarding of the left lateral wall of the levator ani Short Term Goal (STG) Rosalina is able to fully relax her pelvic floor to decrease muscle guarding and pain and to begin to tolerate pelvic floor strengthening-- PROGRESS MADE STG Duration 6 weeks Assessment Summary Assessment Pt is doing well, but continuing to notice R leg pain in relation to her back. The left obterator has improved, but her back tension is radiating into her right sided pelvic floor. Pt has only been seen 2x in last 2 months due to a change in her work schedule, so progress has been limited due to reduction in frequency of treatment, but pt is scheduled more frequently in the future. Physical Therapy Plan Frequency and Duration Frequency of Treatment 1x/Week Duration of Treatment 8 weeks Plan of Care Start Date 01/19/19 Plan of Care End Date 03/16/19 Therapeutic Interventions Therapeutic Interventions Home Exercise Program Manual Therapy Neuromuscular Re-education Patient/Caregiver Education Self-Care/Home Management Soft Tissue Mobilization Therapeutic Exercises Modalities Biofeedback Cold Pack/Ice Massage Electric Stimulation Hot Packs Next Visit Focus/Plan Next Note Type Treatment Note Next Visit Plan Progress stabilization exercises without flaring tension.
--- NOTE | 2019-01-19 08:51 | PT.OPPOC ---
Current Diagnoses Unspecified dyspareunia (01/19/19) Vulvodynia, unspecified (01/19/19) Provider Visit Care Team Role Provider Type Elisabeth Kennedy PA-C Primary Care Provider Advanced Journalism Instructor Specialty: Family Practice Address: [address] [place] [address], [id number] Email: [email or web address] ADARSH Arenas Attending Provider Non-Staff Specialty: Medical Address: [address] [place] [address], [id number] Email: Plan Of Care PT-OP-T Assessment and Plan Start: 07/13/18 17:40 Freq: Status: Active Protocol: Document 01/19/19 07:30 AMB (Rec: 01/19/19 08:14 AMB [id number]) Physical Therapy Assessment Goals Three Impairment pelvic pain with intercourse Alf Goal (LTG) Shira is able to return to intercourse with her without complaints of pelvic pain or bladder spasms-- PROGRESS MADE LTG Duration 8 weeks Two Impairment pelvic floor weakness Alf Goal (LTG) After her pelvic floor is able to relax, Shira is able to tolerate a pelvic floor strengthening program for improved bladder support-- PROGRESS MADE LTG Duration 8 weeks One Impairment hypertonicity and guarding of the left lateral wall of the levator ani Short Term Goal (STG) Rosalina is able to fully relax her pelvic floor to decrease muscle guarding and pain and to begin to tolerate pelvic floor strengthening-- PROGRESS MADE STG Duration 6 weeks Assessment Summary Assessment Dwayne is doing well, but continuing to notice R leg pain in relation to her back. The left obterator has improved, but her back tension is radiating into her right sided pelvic floor. Pt has only been seen 2x in last 2 months due to a change in her work schedule, so progress has been limited due to reduction in frequency of treatment, but pt is scheduled more frequently in the future. Physical Therapy Plan Frequency and Duration Frequency of Treatment 1x/Week Duration of Treatment 8 weeks Plan of Care Start Date 01/19/19 Plan of Care End Date 03/16/19 Therapeutic Interventions Therapeutic Interventions Home Exercise Program Manual Therapy Neuromuscular Re-education Patient/Caregiver Education Self-Care/Home Management Soft Tissue Mobilization Therapeutic Exercises Modalities Biofeedback Cold Pack/Ice Massage Electric Stimulation Hot Packs Next Visit Focus/Plan Next Note Type Treatment Note Next Visit Plan Progress stabilization exercises without flaring tension. Plan of Care Dates Plan of Care Start Date 01/19/19 Plan of Care End Date 03/16/19 Please Sign and Return: I have reviewed this Plan of Care and certify that the skilled therapy services above are required to meet the patient?s needs. Physician Signature Date Printed Name and Credentials Clinical Instructor Signature Printed Name and Credentials
--- NOTE | 2019-01-26 12:09 | PT.OTN ---
Current Diagnoses Unspecified dyspareunia (01/26/19) Vulvodynia, unspecified (01/26/19) Physical Therapy Treatment Note PT-OP-A Visit Information Start: 07/13/18 17:40 Freq: Status: Active Protocol: Document 01/26/19 07:34 BS (Rec: 01/26/19 08:18 BS [email or web address]) Out-Patient Physical Therapy Visit Information Visit Information Visit Type Treatment Note Visit Start Time 07:40 Visit Stop Time 08:15 Total Visit Minutes 35 Visit Number 20 PT-OP-B Current Condition Start: 07/13/18 17:40 Freq: Status: Active Protocol: Document 07/18/18 17:03 AMH (Rec: 07/18/18 17:21 AMH [email or web address]) Current Condition History of Current Condition Onset Date chronic symptoms 20 years ago Current Complaints pelvic pain, bladder spasm, dyspareunia History of Current Condition Shira reports she had a hysterectomy at age 39 and had a infection following the hysterectomy that took 4-6 months to heal. She had to have a chemical burn treatment to help clear the infection and this caused a great deal of scar tissue on the left side of her pelvic wall. She reports since that time it feels like her bladder will spasm following intercourse and if she has waited too long to void. PT-OP-C Subjective Start: 07/13/18 17:40 Freq: Status: Active Protocol: Document 01/26/19 07:34 BS (Rec: 01/26/19 08:18 BS [email or web address]) OP-PT Subjective Patient Comments Patient Comments Pt states she still has trouble sleeping. Plans to see her MD February 09. PT-OP-I Pelvic Floor Start: 07/13/18 17:40 Freq: Status: Active Protocol: Document 07/11/18 17:41 AMH (Rec: 07/13/18 18:06 AMH [email or web address]) Pelvic Floor Assessment Pelvic Clock Pelvic Clock 12-3 Guarding Pelvic Clock 3-6 Hypertonic Pelvic Clock 6-9 Guarding Pelvic Clock Other Shira is able to contract her pelvic floor but has a difficult time relaxing following a contraction. She is hypertonic in the left illiococcygeus Contraction Ability Manual Muscle Testing Left 3 Manual Muscle Testing Right 3 Manual Muscle Testing Anterior 3 Manual Muscle Testing Posterior 3 PT-OP-Q Treatments Start: 07/13/18 17:40 Freq: Status: Active Protocol: Document 01/26/19 07:34 BS (Rec: 01/26/19 07:36 BS [id number]) Manual Therapy Treatment Soft Tissue Mobilization 4 Body Location R glut med, piriformis Mobilization Type Myofascial Release Sustained Pressure Trigger Point Release Intensity/Depth Moderate 1 Body Location MFR for B illiococcygeus, B obturator Intensity/Depth Moderate PT-OP-T Assessment and Plan Start: 07/13/18 17:40 Freq: Status: Active Protocol: Document 01/26/19 07:34 BS (Rec: 01/26/19 09:56 BS [email or web address]) Physical Therapy Assessment Assessment Summary Assessment PT session focused on manual therapy to obturator with R tension>L and addition of R buttock manual therapy. Less hypertonicity of L obturator and illiococcygeus today. Physical Therapy Plan Next Visit Focus/Plan Next Note Type Treatment Note Next Visit Plan Continue with obturator/ illiococcygeus manual therapy. Assess lumbar myofascial tension next visit.
--- NOTE | 2019-02-02 09:35 | PT.OTN ---
Current Diagnoses Unspecified dyspareunia (02/02/19) Vulvodynia, unspecified (02/02/19) Physical Therapy Treatment Note PT-OP-A Visit Information Start: 07/13/18 17:40 Freq: Status: Active Protocol: Document 02/02/19 07:33 BS (Rec: 02/02/19 07:39 BS [id number]) Out-Patient Physical Therapy Visit Information Visit Information Visit Type Treatment Note Visit Start Time 07:35 Visit Stop Time 08:20 Total Visit Minutes 45 Visit Number 21 PT-OP-B Current Condition Start: 07/13/18 17:40 Freq: Status: Active Protocol: Document 07/18/18 17:03 AMH (Rec: 07/18/18 17:21 AMH [email or web address]) Current Condition History of Current Condition Onset Date chronic symptoms 20 years ago Current Complaints pelvic pain, bladder spasm, dyspareunia History of Current Condition Shira reports she had a hysterectomy at age 39 and had a infection following the hysterectomy that took 4-6 months to heal. She had to have a chemical burn treatment to help clear the infection and this caused a great deal of scar tissue on the left side of her pelvic wall. She reports since that time it feels like her bladder will spasm following intercourse and if she has waited too long to void. PT-OP-C Subjective Start: 07/13/18 17:40 Freq: Status: Active Protocol: Document 02/02/19 07:33 BS (Rec: 02/02/19 07:39 BS [id number]) OP-PT Subjective Patient Comments Patient Comments Pt states work has been super stressful and that she hasn't been sleeping well. She has been having inconsistent R groin numbness/tingling and has apt scheduled with physician 02/09. PT-OP-I Pelvic Floor Start: 07/13/18 17:40 Freq: Status: Active Protocol: Document 07/11/18 17:41 AMH (Rec: 07/13/18 18:06 AMH [email or web address]) Pelvic Floor Assessment Pelvic Clock Pelvic Clock 12-3 Guarding Pelvic Clock 3-6 Hypertonic Pelvic Clock 6-9 Guarding Pelvic Clock Other Shira is able to contract her pelvic floor but has a difficult time relaxing following a contraction. She is hypertonic in the left illiococcygeus Contraction Ability Manual Muscle Testing Left 3 Manual Muscle Testing Right 3 Manual Muscle Testing Anterior 3 Manual Muscle Testing Posterior 3 PT-OP-Q Treatments Start: 07/13/18 17:40 Freq: Status: Active Protocol: Document 02/02/19 07:33 BS (Rec: 02/02/19 07:39 BS [id number]) Manual Therapy Treatment Soft Tissue Mobilization 3 Body Location Hip flexor stretch Body Position 2x30 Comments Passive, prone with hip extension 1 Body Location MFR for B illiococcygeus, B obturator Intensity/Depth Moderate Comments Greater focus on R obturator with active Hip IR/ER. Nerve Glides 1 Nerve Femoral N Body Position Prone Comments Prone on elbows. Passive knee flexion, active caused N/T. Active cervical flexion/ extension. PT-OP-T Assessment and Plan Start: 07/13/18 17:40 Freq: Status: Active Protocol: Document 02/02/19 07:33 BS (Rec: 02/02/19 09:18 BS [email or web address]) Physical Therapy Assessment Assessment Summary Assessment Pt's L pelvic floor pain has improved but pt continues to complain of R groin pain and numbness/tingling. Addition of femoral nerve flossing and hip flexor stretch. Pt has apt scheduled with 02/09. Physical Therapy Plan Next Visit Focus/Plan Next Note Type Treatment Note Next Visit Plan Assess response to femoral nerve flossing with R groin symptoms.
--- NOTE | 2019-02-13 12:42 | PT.OTN ---
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) Physical Therapy Treatment Note PT-OP-A Visit Information Start: 07/13/18 17:40 Freq: Status: Active Protocol: Document 02/13/19 07:30 AMB (Rec: 02/13/19 08:03 AMB [id number]) Out-Patient Physical Therapy Visit Information Visit Information Visit Type Treatment Note Visit Start Time 07:35 Visit Stop Time 08:15 Total Visit Minutes 40 Visit Number 22 PT-OP-B Current Condition Start: 07/13/18 17:40 Freq: Status: Active Protocol: Document 07/18/18 17:03 AMH (Rec: 07/18/18 17:21 AMH [email or web address]) Current Condition History of Current Condition Onset Date chronic symptoms 20 years ago Current Complaints pelvic pain, bladder spasm, dyspareunia History of Current Condition Shira reports she had a hysterectomy at age 39 and had a infection following the hysterectomy that took 4-6 months to heal. She had to have a chemical burn treatment to help clear the infection and this caused a great deal of scar tissue on the left side of her pelvic wall. She reports since that time it feels like her bladder will spasm following intercourse and if she has waited too long to void. PT-OP-C Subjective Start: 07/13/18 17:40 Freq: Status: Active Protocol: Document 02/13/19 08:29 AMB (Rec: 02/13/19 09:04 AMB [email or web address]) OP-PT Subjective Patient Comments Patient Comments Pt is concerned that she might be plateauing. She is seeing her doctor regarding her right leg pain. PT-OP-I Pelvic Floor Start: 07/13/18 17:40 Freq: Status: Active Protocol: Document 07/11/18 17:41 AMH (Rec: 07/13/18 18:06 AMH [email or web address]) Pelvic Floor Assessment Pelvic Clock Pelvic Clock 12-3 Guarding Pelvic Clock 3-6 Hypertonic Pelvic Clock 6-9 Guarding Pelvic Clock Other Shira is able to contract her pelvic floor but has a difficult time relaxing following a contraction. She is hypertonic in the left illiococcygeus Contraction Ability Manual Muscle Testing Left 3 Manual Muscle Testing Right 3 Manual Muscle Testing Anterior 3 Manual Muscle Testing Posterior 3 PT-OP-Q Treatments Start: 07/13/18 17:40 Freq: Status: Active Protocol: Document 02/13/19 08:29 AMB (Rec: 02/13/19 09:04 AMB [email or web address]) Therapeutic Exercises Supine Exercises 4 Supine Exercise Name hamstring adductor stretch Reps/Minutes 30x2 3 Supine Exercise Name piriformis stretch Reps/Minutes 30x2 2 Supine Exercise Name hip flexor Manual Therapy Treatment Soft Tissue Mobilization 3 Body Location R Hip flexor stretch Body Position 2x30 Comments Passive, prone with hip extension 1 Body Location MFR for B illiococcygeus, B obturator Intensity/Depth Moderate Comments Greater focus on R obturator with active Hip IR/ER. PT-OP-T Assessment and Plan Start: 07/13/18 17:40 Freq: Status: Active Protocol: Document 02/13/19 08:29 AMB (Rec: 02/13/19 09:04 AMB [email or web address]) Physical Therapy Assessment Assessment Summary Assessment Femoral nerve glides increased pt's sx after last visit, but just for a few hours, and pt was able to stretch it out. Manual therapy helps reduce pt 's pain for a short period of time, but is not long lasting like the left side was. Will need to either change treatment to address right sided pain that is likely propagating pain. Physical Therapy Plan Next Visit Focus/Plan Next Note Type Treatment Note Next Visit Plan Reassess after pt's MD appointment
--- NOTE | 2019-02-23 11:03 | PT.OTN ---
Current Diagnoses Unspecified dyspareunia (02/23/19) Vulvodynia, unspecified (02/23/19) Physical Therapy Treatment Note PT-OP-A Visit Information Start: 07/13/18 17:40 Freq: Status: Active Protocol: Document 02/23/19 08:15 BS (Rec: 02/23/19 07:33 BS [id number]) Out-Patient Physical Therapy Visit Information Visit Information Visit Type Treatment Note Visit Start Time 07:35 Visit Stop Time 08:15 Total Visit Minutes 40 Visit Number 23 PT-OP-B Current Condition Start: 07/13/18 17:40 Freq: Status: Active Protocol: Document 07/18/18 17:03 AMH (Rec: 07/18/18 17:21 AMH [email or web address]) Current Condition History of Current Condition Onset Date chronic symptoms 20 years ago Current Complaints pelvic pain, bladder spasm, dyspareunia History of Current Condition Shira reports she had a hysterectomy at age 39 and had a infection following the hysterectomy that took 4-6 months to heal. She had to have a chemical burn treatment to help clear the infection and this caused a great deal of scar tissue on the left side of her pelvic wall. She reports since that time it feels like her bladder will spasm following intercourse and if she has waited too long to void. PT-OP-C Subjective Start: 07/13/18 17:40 Freq: Status: Active Protocol: Document 02/23/19 08:15 BS (Rec: 02/23/19 07:33 BS [id number]) OP-PT Subjective Patient Comments Patient Comments Pt reports that the doctor took xrays but that she has not heard back on results, has called multiple times. Dr Mello is thinking possible hip impingement. PT-OP-I Pelvic Floor Start: 07/13/18 17:40 Freq: Status: Active Protocol: Document 07/11/18 17:41 AMH (Rec: 07/13/18 18:06 AMH [email or web address]) Pelvic Floor Assessment Pelvic Clock Pelvic Clock 12-3 Guarding Pelvic Clock 3-6 Hypertonic Pelvic Clock 6-9 Guarding Pelvic Clock Other Shira is able to contract her pelvic floor but has a difficult time relaxing following a contraction. She is hypertonic in the left illiococcygeus Contraction Ability Manual Muscle Testing Left 3 Manual Muscle Testing Right 3 Manual Muscle Testing Anterior 3 Manual Muscle Testing Posterior 3 PT-OP-Q Treatments Start: 07/13/18 17:40 Freq: Status: Active Protocol: Document 02/23/19 08:15 BS (Rec: 02/23/19 08:42 BS [id number]) Therapeutic Exercises Supine Exercises 5 Supine Exercise Name Alternating Marches Reps/Minutes x20 Comments TA contraction 1 Supine Exercise Name Roll in Equipment Used small ball Reps/Minutes x10. 5 hold Comments Pelvic floor and TA contraction Manual Therapy Treatment Soft Tissue Mobilization 1 Body Location MFR for B illiococcygeus, B obturator Intensity/Depth Moderate Comments Greater focus on R obturator. PT-OP-T Assessment and Plan Start: 07/13/18 17:40 Freq: Status: Active Protocol: Document 02/23/19 08:15 BS (Rec: 02/23/19 07:33 BS [id number]) Physical Therapy Assessment Assessment Summary Assessment Pt is still awaiting results from xrays. Her pelvic pain has improved and she reports less pain with intercourse this past weekend. Will continue to address pelvic pain but awaiting results from and will decide what to do about burning sensation in adductors. Physical Therapy Plan Next Visit Focus/Plan Next Note Type Treatment Note Next Visit Plan Continue to address pelvic pain, adductor and pelvic floor strengthening. Ask about xray results.
--- NOTE | 2019-03-09 08:24 | PT.OTN ---
Current Diagnoses Unspecified dyspareunia (03/09/19) Vulvodynia, unspecified (03/09/19) Physical Therapy Treatment Note PT-OP-A Visit Information Start: 07/13/18 17:40 Freq: Status: Active Protocol: Document 03/09/19 07:30 AMB (Rec: 03/09/19 07:34 AMB [id number]) Out-Patient Physical Therapy Visit Information Visit Information Visit Type Treatment Note Visit Start Time 07:30 Visit Stop Time 08:10 Total Visit Minutes 40 Visit Number 24 PT-OP-B Current Condition Start: 07/13/18 17:40 Freq: Status: Active Protocol: Document 07/18/18 17:03 AMH (Rec: 07/18/18 17:21 AMH [email or web address]) Current Condition History of Current Condition Onset Date chronic symptoms 20 years ago Current Complaints pelvic pain, bladder spasm, dyspareunia History of Current Condition Shira reports she had a hysterectomy at age 39 and had a infection following the hysterectomy that took 4-6 months to heal. She had to have a chemical burn treatment to help clear the infection and this caused a great deal of scar tissue on the left side of her pelvic wall. She reports since that time it feels like her bladder will spasm following intercourse and if she has waited too long to void. 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 PT-OP-I Pelvic Floor Start: 07/13/18 17:40 Freq: Status: Active Protocol: Document 07/11/18 17:41 AMH (Rec: 07/13/18 18:06 AMH [email or web address]) Pelvic Floor Assessment Pelvic Clock Pelvic Clock 12-3 Guarding Pelvic Clock 3-6 Hypertonic Pelvic Clock 6-9 Guarding Pelvic Clock Other Shira is able to contract her pelvic floor but has a difficult time relaxing following a contraction. She is hypertonic in the left illiococcygeus Contraction Ability Manual Muscle Testing Left 3 Manual Muscle Testing Right 3 Manual Muscle Testing Anterior 3 Manual Muscle Testing Posterior 3 PT-OP-Q Treatments Start: 07/13/18 17:40 Freq: Status: Active Protocol: Document 03/09/19 07:30 AMB (Rec: 03/09/19 08:23 AMB [id number]) Therapeutic Exercises Supine Exercises 2 Supine Exercise Name hip flexor stretch Reps/Minutes 30x2 Manual Therapy Treatment Soft Tissue Mobilization 5 Body Location adductor Mobilization Type Myofascial Release Comments R 3 Body Location R Hip flexor stretch Body Position 2x30 Comments Passive, prone with hip extension 1 Body Location MFR for B illiococcygeus, B obturator Intensity/Depth Moderate Comments Greater focus on R obturator. PT-OP-T Assessment and Plan Start: 07/13/18 17:40 Freq: Status: Active Protocol: Document 03/09/19 07:30 AMB (Rec: 03/09/19 08:23 AMB [id number]) Physical Therapy Assessment Assessment Summary Assessment Adductor tightness today, but pelvic floor tightness on the right is improving. Physical Therapy Plan Next Visit Focus/Plan Next Note Type Treatment Note Next Visit Plan Continue to address pelvic pain, adductor and pelvic floor strengthening. Ask about xray results.
--- NOTE | 2019-03-23 13:38 | PT.OTN ---
Current Diagnoses Unspecified dyspareunia (03/23/19) Vulvodynia, unspecified (03/23/19) Physical Therapy Treatment Note PT-OP-A Visit Information Start: 07/13/18 17:40 Freq: Status: Active Protocol: Document 03/23/19 07:30 AMB (Rec: 03/23/19 08:49 AMB [email or web address]) Out-Patient Physical Therapy Visit Information Visit Information Visit Type Treatment Note Visit Start Time 07:30 Visit Stop Time 08:10 Total Visit Minutes 40 Visit Number 25 PT-OP-B Current Condition Start: 07/13/18 17:40 Freq: Status: Active Protocol: Document 07/18/18 17:03 AMH (Rec: 07/18/18 17:21 AMH [email or web address]) Current Condition History of Current Condition Onset Date chronic symptoms 20 years ago Current Complaints pelvic pain, bladder spasm, dyspareunia History of Current Condition Shira reports she had a hysterectomy at age 39 and had a infection following the hysterectomy that took 4-6 months to heal. She had to have a chemical burn treatment to help clear the infection and this caused a great deal of scar tissue on the left side of her pelvic wall. She reports since that time it feels like her bladder will spasm following intercourse and if she has waited too long to void. PT-OP-C Subjective Start: 07/13/18 17:40 Freq: Status: Active Protocol: Document 03/23/19 07:30 AMB (Rec: 03/23/19 08:49 AMB [email or web address]) OP-PT Subjective Patient Comments Patient Comments Pt has an MRI planned for next month. PT-OP-I Pelvic Floor Start: 07/13/18 17:40 Freq: Status: Active Protocol: Document 07/11/18 17:41 AMH (Rec: 07/13/18 18:06 AMH [email or web address]) Pelvic Floor Assessment Pelvic Clock Pelvic Clock 12-3 Guarding Pelvic Clock 3-6 Hypertonic Pelvic Clock 6-9 Guarding Pelvic Clock Other Shira is able to contract her pelvic floor but has a difficult time relaxing following a contraction. She is hypertonic in the left illiococcygeus Contraction Ability Manual Muscle Testing Left 3 Manual Muscle Testing Right 3 Manual Muscle Testing Anterior 3 Manual Muscle Testing Posterior 3 PT-OP-Q Treatments Start: 07/13/18 17:40 Freq: Status: Active Protocol: Document 03/23/19 07:30 AMB (Rec: 03/23/19 13:34 AMB [email or web address]) Manual Therapy Treatment Soft Tissue Mobilization 1 Body Location MFR for B illiococcygeus, B obturator Intensity/Depth Moderate Comments Greater focus on R obturator. PT-OP-T Assessment and Plan Start: 07/13/18 17:40 Freq: Status: Active Protocol: Document 03/23/19 07:30 AMB (Rec: 03/23/19 13:01 AMB [email or web address]) Physical Therapy Assessment Goals Three Impairment pelvic pain with intercourse Belt Glass Sander Goal (LTG) Shira is able to return to intercourse with her without complaints of pelvic pain or bladder spasms-- LTG Duration MET Two Impairment pelvic floor weakness Belt Glass Sander Goal (LTG) After her pelvic floor is able to relax, Shira is able to tolerate a pelvic floor strengthening program for improved bladder support-- PROGRESS MADE LTG Duration 8 weeks One Impairment hypertonicity and guarding of the left lateral wall of the levator ani Short Term Goal (STG) Rosalina is able to fully relax her pelvic floor to decrease muscle guarding and pain and to begin to tolerate pelvic floor strengthening-- STG Duration MET Assessment Summary Assessment Dyspareunia sx pretty well controlled at this time, but pt is interested in seeing if MD will do anything to manage her hip/back pain that does contribute to her pelvic tension. Physical Therapy Plan Frequency and Duration Frequency of Treatment Every Other Week Duration of Treatment 6 weeks Plan of Care Start Date 03/23/19 Plan of Care End Date 05/04/19 Therapeutic Interventions Therapeutic Interventions Home Exercise Program Manual Therapy Neuromuscular Re-education Patient/Caregiver Education Self-Care/Home Management Soft Tissue Mobilization Therapeutic Exercises Modalities Biofeedback Cold Pack/Ice Massage Electric Stimulation Hot Packs Next Visit Focus/Plan Next Note Type Treatment Note Next Visit Plan Pt will be on hold until her MRI results come back, then we will decide how to use the remainder of her PT visits for the year (she may choose to do PT for her back/hip, but would need a prescription for that.)
--- NOTE | 2019-03-23 13:38 | PT.OPPOC ---
Current Diagnoses Unspecified dyspareunia (03/23/19) Vulvodynia, unspecified (03/23/19) Provider Visit Care Team Role Provider Type Elisabeth Kennedy PA-C Primary Care Provider Advanced Project Management Consultant Specialty: Family Practice Address: [address] [place] [address], [id number] Email: [email or web address] ADARSH Arenas Attending Provider Non-Staff Specialty: Medical Address: [address] [place] [address], [id number] Email: Plan Of Care PT-OP-T Assessment and Plan Start: 07/13/18 17:40 Freq: Status: Active Protocol: Document 03/23/19 07:30 AMB (Rec: 03/23/19 13:01 AMB [email or web address]) Physical Therapy Assessment Goals Three Impairment pelvic pain with intercourse Network Analyst Goal (LTG) Shira is able to return to intercourse with her without complaints of pelvic pain or bladder spasms-- LTG Duration MET Two Impairment pelvic floor weakness Residential Goal (LTG) After her pelvic floor is able to relax, Shira is able to tolerate a pelvic floor strengthening program for improved bladder support-- PROGRESS MADE LTG Duration 8 weeks One Impairment hypertonicity and guarding of the left lateral wall of the levator ani Short Term Goal (STG) Rosalina is able to fully relax her pelvic floor to decrease muscle guarding and pain and to begin to tolerate pelvic floor strengthening-- STG Duration MET Assessment Summary Assessment Dyspareunia sx pretty well controlled at this time, but pt is interested in seeing if MD will do anything to manage her hip/back pain that does contribute to her pelvic tension. Physical Therapy Plan Frequency and Duration Frequency of Treatment Every Other Week Duration of Treatment 6 weeks Plan of Care Start Date 03/23/19 Plan of Care End Date 05/04/19 Therapeutic Interventions Therapeutic Interventions Home Exercise Program Manual Therapy Neuromuscular Re-education Patient/Caregiver Education Self-Care/Home Management Soft Tissue Mobilization Therapeutic Exercises Modalities Biofeedback Cold Pack/Ice Massage Electric Stimulation Hot Packs Next Visit Focus/Plan Next Note Type Treatment Note Next Visit Plan Pt will be on hold until her MRI results come back, then we will decide how to use the remainder of her PT visits for the year (she may choose to do PT for her back/hip, but would need a prescription for that.) Plan of Care Dates Plan of Care Start Date 03/23/19 Plan of Care End Date 05/04/19 Please Sign and Return: I have reviewed this Plan of Care and certify that the skilled therapy services above are required to meet the patient?s needs. Physician Signature Date Printed Name and Credentials Clinical Instructor Signature Printed Name and Credentials
--- NOTE | 2019-05-25 10:12 | PT.OPDS ---
Current Diagnoses Unspecified dyspareunia (03/23/19) Vulvodynia, unspecified (03/23/19) Provider Visit Care Team Role Provider Type Elisabeth Kennedy PA-C Primary Care Provider Advanced Canopy Stringer Specialty: Family Practice Address: [address] [place] [address], [address] Email: [email or web address] ADARSH Arenas Attending Provider Non-Staff Specialty: Medical Address: [address] [place] [address], [place], [address] Email: Visit Number Visit Number 25 Discharge Summary PT-OP-B Current Condition Start: 07/13/18 17:40 Freq: Status: Active Protocol: Document 07/18/18 17:03 AMH (Rec: 07/18/18 17:21 AMH [email or web address]) Current Condition History of Current Condition Onset Date chronic symptoms 20 years ago Current Complaints pelvic pain, bladder spasm, dyspareunia History of Current Condition Shira reports she had a hysterectomy at age 39 and had a infection following the hysterectomy that took 4-6 months to heal. She had to have a chemical burn treatment to help clear the infection and this caused a great deal of scar tissue on the left side of her pelvic wall. She reports since that time it feels like her bladder will spasm following intercourse and if she has waited too long to void. PT-OP-C Subjective Start: 07/13/18 17:40 Freq: Status: Active Protocol: Document 03/23/19 07:30 AMB (Rec: 03/23/19 08:49 AMB [email or web address]) OP-PT Subjective Patient Comments Patient Comments Pt has an MRI planned for next month. PT-OP-I Pelvic Floor Start: 07/13/18 17:40 Freq: Status: Active Protocol: Document 07/11/18 17:41 AMH (Rec: 07/13/18 18:06 AMH [email or web address]) Pelvic Floor Assessment Pelvic Clock Pelvic Clock 12-3 Guarding Pelvic Clock 3-6 Hypertonic Pelvic Clock 6-9 Guarding Pelvic Clock Other Shira is able to contract her pelvic floor but has a difficult time relaxing following a contraction. She is hypertonic in the left illiococcygeus Contraction Ability Manual Muscle Testing Left 3 Manual Muscle Testing Right 3 Manual Muscle Testing Anterior 3 Manual Muscle Testing Posterior 3 PT-OP-T Assessment and Plan Start: 07/13/18 17:40 Freq: Status: Active Protocol: Document 05/25/19 10:10 AMB (Rec: 05/25/19 10:12 AMB [email or web address]) Physical Therapy Assessment Goals Three Impairment pelvic pain with intercourse Fpc Goal (LTG) Shira is able to return to intercourse with her without complaints of pelvic pain or bladder spasms-- LTG Duration MET Two Impairment pelvic floor weakness Fpc Goal (LTG) After her pelvic floor is able to relax, Shira is able to tolerate a pelvic floor strengthening program for improved bladder support LTG Duration MET One Impairment hypertonicity and guarding of the left lateral wall of the levator ani Short Term Goal (STG) Rosalina is able to fully relax her pelvic floor to decrease muscle guarding and pain and to begin to tolerate pelvic floor strengthening-- STG Duration MET Assessment Summary Assessment Rosalina has met all of her pelvic floor goals. She continues to have back/hip sx which impact her pelvic floor tension, but she is going to be getting PT at another location for that considering that her original pelvic floor complaints have now resolved. Physical Therapy Plan Discharge Physical Therapy Discharge Reasons Goals Met
== END 2019-05-25 13:36 | disposition home or self-care (01) ==
LOC: PHYS 07:30
PROVIDERS: PCP Physician Assistant; Visit Provider Nurse Practitioner Family
DX: N94.819 Vulvodynia, unspecified (principal); N94.10 Unspecified dyspareunia
CPT/HCPCS: 97110; 97112; 97140; 97161

== ENCOUNTER → 2022-11-12 09:19 | Outpatient (CLI) | payer BC, SELFPAY ==
[2022-11-12 11:27] LABS: COVID19 -Nasal RAPID Negative (Negative)
== END ==
PROVIDERS: Visit Provider Surgery
DX: Z01.812 Encounter for preprocedural laboratory examination (principal); Z20.822 Contact with and (suspected) exposure to COVID-19
CPT/HCPCS: 87635; C9803

== ENCOUNTER 2022-11-15 09:43 | Day surgery (SDC) | payer BC, SELFPAY ==
--- NOTE | 2022-11-15 | PATH_ITS ---
[facility] Accession Number: [id number] No. of containers..04 Tissue . 01 Material submitted: . PART A: duodenum - DUODENUM PART B: stomach - ANTRUM PART C: esophagus, E-G Junction - GE JUNCTION PART D: esophagus - MID ESOPHAGUS . 01 Diagnosis: A. Duodenum, Biopsy: Duodenal mucosa with no diagnostic abnormality. Negative for active inflammation, features of sprue, dysplasia, or malignancy. . B. Stomach, Antrum, Biopsy: Gastric oxyntic mucosa with no significant diagnostic abnormality. No evidence of Helicobacter on H/E stain. Negative for intestinal metaplasia. Negative for dysplasia and malignancy. . C. Gastroesophageal Junction, Biopsy: Columnar mucosa with mild chronic inflammation and foveolar hyperplasia. Negative for intestinal metaplasia. Negative for dysplasia and malignancy. . D. Mid Esophagus, Biopsy: Squamous epithelium with no diagnostic abnormality. Intraepithelial eosinophils are not increased. Negative for dysplasia and malignancy. [facility] 11/17/2022 1032 Local . 01 Electronically signed: . Uyen Marie MD, Pathologist NPI- [id number] . 01 Gross description: . Part A: DUODENUM: Received in formalin is 1 fragment(s) of todd, soft tissue measuring 0.3 x 0.2 x 0.1 cm submitted entirely in 1 cassette(s) Part B: ANTRUM: Received in formalin is 1 fragment(s) of todd, soft tissue measuring 0.2 x 0.2 x 0.1 cm submitted entirely in 1 cassette(s) Part C: GE JUNCTION: Received in formalin is 1 fragment(s) of todd, soft tissue measuring 0.3 x 0.2 x 0.1 cm submitted entirely in 1 cassette(s) Part D: MID ESOPHAGUS: Received in formalin are 3 fragment(s) of todd, soft tissue measuring 0.3 x 0.1 x 0.1 cm to 0.1 x 0.1 x 0.1 cm submitted entirely in 1 cassette(s) /CPE 11/16/2022 0539 Local . 01 Pathologist provided ICD-10: R13.10, R14.0 . 01 CPT . 005843, [id number], [id number], [id number] Specimen Comment: A courtesy copy of this report has been sent to [phone] Performed at: 01 [facility] [address] [place] [address], [place], [place] [id number] MD Félix Morgan MD Phone: [phone]
[2022-11-15 10:11] VITALS: BP 123/76; PULSE 74; RESP 15; TEMP 37.1; O2SAT 100; BMI 30.7
[2022-11-15] MEDS: LACTATED RINGERS 1,000 ML 84 ML IV (10:21)
--- NOTE | 2022-11-15 10:55 | PM.HP.1 ---
History of Present Illness History of Present Illness Date Patient Seen: 11/15/22 Time Patient Seen: 10:55 Chief complaint: EGD/Colonoscopy Narrative: I reviewed my recent office note. No significant changes. Personal history of colon polyps. Poor appetite. Dysphagia. Patient History Medical History Chronic low back pain (Unknown) Marixa's disease (Unknown) Hypothyroidism (Unknown) Surgical History Hx of cholecystectomy (2003) Hx of dilation and curettage (09/2003) Hx of hysterectomy (08/2004) Hx of shoulder surgery (2012) Hx of vein stripping (2000) Family & Social History Family History Father Diabetes mellitus Mother Hypertension Grandfather Stroke Grandmother Congestive heart failure Grandfather No problems noted. Grandmother Cancer Social History: household members spouse Tobacco & Substance use: Smoking Status Never smoker alcohol intake current alcohol intake frequency holiday/special occasion Substance Use Type does not use Meds Home Medications and Allergies Home Medications Medication Instructions Recorded Confirmed Type [compound] ##0 05/09/17 04/25/18 History ibuprofen 400 mg tablet 400 mg PO PRN PRN Pain (Scale 05/09/17 11/15/22 History Score 1-3) ##0 hydrocortisone acetate 25 mg 25 mg RC TID #10 supp 07/20/17 11/15/22 Rx rectal suppository ketoconazole 2 % topical cream 1 shine topical BID PRN ##30 11/02/17 11/15/22 Rx testosterone 50 mg/5 gram (1 %) 1 packet transdermal QAM 03/09/18 11/15/22 History transdermal gel alprazolam 0.5 mg tablet 0.5 mg PO BID PRN anxiety #60 tabs 04/04/18 11/15/22 Rx Testosterone Cream 1? 0.1 ml topical .DAY #1 tube 04/25/18 11/15/22 Rx [biest] 0.3 ml topical BID #3 mL 04/25/18 11/15/22 Rx clobetasol 0.05 % topical ointment 1 applictn topical BID PRN atopic 04/25/18 11/15/22 Rx dermatitis #30 grams fluconazole 150 mg tablet 150 mg PO QDAY #2 tabs 04/25/18 11/15/22 Rx (Diflucan) levothyroxine 50 mcg tablet 100 mcg PO QAM #180 tabs 04/25/18 11/15/22 Rx liothyronine 5 mcg tablet (Cytomel) 10 mcg PO QDAY #180 tabs 04/25/18 11/15/22 Rx progesterone 0.3 ml topical BID #3 mL 04/25/18 11/15/22 Rx cephalexin 500 mg capsule (Keflex) 500 mg PO PRN PRN recurrant uti 05/04/19 11/15/22 Rx #14 caps Allergies Allergy/AdvReac Type Severity Reaction Status Date / Time [place] And Derivatives Allergy Unknown Verified 04/25/18 08:08 [CITRUS AND DERIVATIVES] codeine [CODEINE] Allergy Unknown Verified 04/25/18 08:08 crab [CRAB] Allergy Unknown Verified 04/25/18 08:08 gluten [GLUTEN] Allergy Unknown Verified 04/25/18 08:08 latex [LATEX] Allergy Unknown Verified 04/25/18 08:08 nitrofurantoin Allergy Unknown Verified 04/25/18 08:08 [From MACROBID] promethazine [From PHENERGAN] Allergy Unknown Verified 04/25/18 08:08 propofol [PROPOFOL] Allergy Unknown Verified 04/25/18 08:08 sweet potato [SWEET POTATO] Allergy Unknown Verified 04/25/18 08:08 tetracycline [TETRACYCLINE] Allergy Unknown Verified 04/25/18 08:08 morphine AdvReac Unknown Hallucinati Verified 11/15/22 10:24 ng Review of Systems Review of Systems ROS: Yes All systems reviewed with the patient and are negative except as otherwise documented Exam Vital Signs (past 8 hours): - 11/15/22 10:11 Temperature 98.8 F Pulse Rate 74 Respiratory Rate 15 Blood Pressure 123/76 Pulse Oximetry 100 Oxygen Delivery Method Room Air Oxygen Delivery Method Room Air Const General: cooperative HENMT Head: normal to inspection Eyes General: appearance normal, both eyes and all related structures Neck Neck: normal visual inspection Chest Chest: normal inspection of the chest Resp Effort & Inspection: normal respiratory effort Cardio Rate: regular rate GI Inspection: normal to inspection Skin General: no rashes or lesions noted Neuro General: patient alert and patient awake Extrem General: normal to inspection and no pedal edema Psych Appearance: grossly normal Assessment & Plan Assessment & Plan narrative: 57-year-old female with symptoms of dysphagia and a personal history of colon polyps. EGD and colonoscopy are pursued today. Time Spent With Patient Critical Care time: I spent a total of [] minutes of critical care time on this patient's care today; this time is exclusive of procedural time.
--- NOTE | 2022-11-15 10:57 | PM.PREOP ---
Pre-operative Note COVID-19 COVID-19 status: Negative Result date/Date tested (Pos, Neg/Pending): 11/12/22 Criteria for continued procedure: Possibility delay results in more complex future surgery or treatment Interval Note History & Physical reviewed/Exam performed by Physician: Yes Changes to H&P: No ASA Class (for procedural sedation): III
--- NOTE | 2022-11-15 12:05 | PM.OP.EC ---
Operative Date/Time/Diagnoses Date of procedure: 11/15/22 Time of procedure: 12:05 Pre-op diagnosis: Dysphagia, personal history of colon polyps Post-op diagnosis: same Procedure & Clinicians Study performed: EGD with biopsies and colonoscopy Same procedure as scheduled: Yes Indications: Dysphagia, personal history of colon polyps Surgeon: Gonzalez Angel Procedure Notes SCOAP/Timeout: Done Procedure in detail: After the risks and benefits were explained, written and verbal informed consent was obtained. The patient was brought into the procedure room and placed into the left lateral decubitus position. Please see anesthesia note for sedation details. The scope was introduced into the mouth through the bite block and advanced under direct visualization to the 2nd portion of the duodenum. The scope was slowly withdrawn carefully examining the mucosa for any defects or lesions. Retroflexed views were accomplished in the stomach. The stomach was decompressed, the scope was then removed from the patient who tolerated the procedure well. The patient was then turned around, a digital rectal examination was accomplished. The scope was introduced into the rectum and advanced to the cecum as identified by the appendiceal orifice and ileocecal valve. The scope was slowly withdrawn to carefully examine the mucosa for any defects or lesions. Multiple direct views were made through the dentate line for exclusion of pathology. The colon was decompressed. The scope was removed from the patient who tolerated the procedure well. Pediatric colonoscope Bowel prep adequate Scope withdrawal time: 9 minutes Sedation minutes: 29 Complications: none Impression: 1. Duodenum: This was visually normal from the bulb through the 2nd portion. There was a small focus of lymphangiectasia that was left alone. Random D2 biopsies were accomplished for exclusion of sprue. 2. Stomach: No ulcers no outlet obstruction no mass lesions. Mild gastropathy was noted and antral biopsies were taken for exclusion of Helicobacter. Retroflexed views of the LES were unremarkable. 3. Esophagus: The squamocolumnar junction correlated with the top of the gastric folds. GEJ was at about 37 cm from the incisors. There was slight irregularity at the GE junction possibly representing some low-grade inflammation and a biopsy was acquired for histopathology. I did not appreciate any stricturing. No evidence of linear eroded features. No obvious suggestion of eosinophilic infiltration. However midesophageal biopsies were additionally acquired for exclusion of eosinophilic esophagitis. 4. Colon: No significant polyps mass lesions or inflammatory features identified throughout. Grade 2 hemorrhoids were noted on direct views. Endoscopic diagnosis 1. Mild gastropathy 2. Mild GE junction irregularity 3. Otherwise visually unremarkable EGD 4. Grade 2 hemorrhoids 5. Otherwise visually unremarkable colonoscopy Post-procedure Plan for aftercare: 1. Await histopathology. 2. Repeat colonoscopy 5 years. Disposition: PACU
[2022-11-15 12:07] VITALS: BP 103/56; PULSE 68; RESP 16; TEMP 36.2; O2SAT 100
[2022-11-15 12:12] VITALS: BP 102/53; PULSE 55; RESP 16; O2SAT 99
[2022-11-15 12:17] VITALS: BP 112/70; PULSE 68; RESP 16; TEMP 36.3; O2SAT 98
[2022-11-15 12:22] VITALS: BP 114/52; PULSE 56; RESP 16
[2022-11-15 12:30] VITALS: BP 112/63; PULSE 53; RESP 12; TEMP 36.9; O2SAT 100
== END 2022-11-15 12:47 | disposition home or self-care (01) ==
PROVIDERS: Referring Provider Internal Medicine Gastroenterology; Visit Provider Internal Medicine Gastroenterology
PROC: 0DJ08ZZ Inspection of Upper Intestinal Tract, Via Natural or Artificial Opening Endoscopic (ICD-10-PCS; CPT 43235; principal; 2022-11-15 11:00)
PROC: 0DJD8ZZ Inspection of Lower Intestinal Tract, Via Natural or Artificial Opening Endoscopic (ICD-10-PCS; CPT 45378; 2022-11-15 11:00)
DX: Z12.11 Encounter for screening for malignant neoplasm of colon (principal); Z86.010 Personal history of colon polyps; R13.10 Dysphagia, unspecified; K64.1 Second degree hemorrhoids; K31.9 Disease of stomach and duodenum, unspecified; K29.50 Unspecified chronic gastritis without bleeding
CPT/HCPCS: 43239; 45378; J2250; J2704; J3010

== ENCOUNTER 2023-08-15 09:38 | Emergency (ER) | payer BC, SELFPAY ==
[2023-08-15] VITALS (19 sets, daily range): BP systolic 122–141; BP diastolic 58–68; PULSE 62–81; RESP 9–20; TEMP 36.7–36.9; O2SAT 96–99; BMI 32.8
--- NOTE | 2023-08-15 10:29 | DI.RAD.S_ITS ---
PROCEDURE: XR CHEST 1V INDICATIONS: chest pain, l arm tingling TECHNIQUE: One view of the chest was acquired. COMPARISON: None. FINDINGS: Surgical changes and devices: None. Lungs and pleura: Lungs are clear. No pleural effusions or pneumothorax. Mediastinum: Mediastinal contours appear normal. Heart size is normal. Bones and chest wall: No suspicious bony lesions. Overlying soft tissues appear unremarkable. IMPRESSION: No evidence acute pulmonary process. Dictated by: Dominic Bradford M.D. on 08/15/2023 at 11:15 Approved by: Dominic Bradford M.D. on 08/15/2023 at 11:16
--- NOTE | 2023-08-15 10:45 | PC.NURSE ---
Patient states at 0530 this morning her left arm felt cold and like you were sleeping on it, and it get's tingly, pins and needles. Pt denies any pain/tingling since 0830 this morning. Her arm still feels cold to her. Pt says her hands and feet are always cold.
[2023-08-15 11:32] LABS: Add Manual Diff / Slide Review NO; Basophils Absolute Auto 0 /uL (0-100); Basophils Percent Auto 0.6 % (0-2); Eosinophils Absolute Auto 0 /uL (0-450); Eosinophils Percent Auto 0.5 % (2-4); Hematocrit 37.8 % (36-46); Lymphocytes Absolute Auto 1000 /uL (1100-4500); Lymphocytes Percent Auto 20.4 % (25-40); Mean Corpuscular HGB Conc 34.4 % (30-36); Mean Corpuscular Hemoglobin 30.8 PG (26-34); Mean Corpuscular Volume 89.5 fL (80-100); Monocytes Absolute Auto 300 /uL (0-900); Monocytes Percent Auto 5.7 % (3-14); Neutrophils Absolute Auto 3600 /uL (1500-7000); Neutrophils Percent Auto 72.8 % (50-75); Platelet Count 241 X10^3/uL (150-400); Red Blood Cell Count 4.22 X10^6/uL (4.0-5.2); Red Cell Distribution Width 13.8 % (11.6-14.8); White Blood Cell Count 4.9 X10^3/uL (4.5-11.0)
[2023-08-15 11:43] LABS: Alanine Aminotransferase 21 IU/L (<35); Albumin 4.2 g/dL (3.5-5.0); Albumin Globulin Ratio 1.4 (1.0-2.8); Alkaline Phosphatase 97 U/L (38-126); Aspartate Aminotransferase 26 IU/L (14-36); BUN Creatinine Ratio 20.3 (6-22); Bilirubin Total 0.5 mg/dL (0.2-1.3); Blood Urea Nitrogen 16 mg/dL (7-17); Calcium 9.5 mg/dL (8.4-10.2); Carbon Dioxide 26 mmol/L (22-32); Chloride 104 mmol/L (98-107); Creatine Kinase 43 U/L (30-135); Estimated Glomerular Filt Rate > 60 mL/min (>60); Globulin 3.1 g/dL (1.7-4.1); Glucose 106 mg/dL (70-100); HEMOLYSIS < 15 (0-50); Lipase 81 U/L (23-300); Potassium 4.2 mmol/L (3.4-5.1); Sodium 137 mmol/L (137-145); Total Protein 7.3 g/dL (6.3-8.2)
[2023-08-15 11:48] LABS: Prothrombin Time 11.6 SECONDS (10.1-12.7)
[2023-08-15 11:50] LABS: D Dimer 321 ng/ml (<500)
[2023-08-15 11:51] LABS: PTT Partial Thromboplastin Tim 31 SECONDS (26-36)
[2023-08-15 11:54] LABS: NT-proBNP (BNP-Adult 18+) 137 pg/mL (<125); Troponin I < 0.012 ng/mL (0.01-0.034)
[2023-08-15 14:39] LABS: Troponin I < 0.012 ng/mL (0.01-0.034)
--- NOTE | 2023-08-15 16:19 | ED_ITS ---
HPI - Extremity Problem <Bertha Waldron PA-C - Last Filed: 08/15/23 16:24> General Chief complaint: Extremity Problem,Nontraumatic Stated complaint: dizzy Time Seen by Provider: 08/15/23 10:29 Source: patient, family and EMS Mode of arrival: EMS History of Present Illness HPI Narrative: Patient is a 58-year-old female with a history of hypothyroid who presents after an episode of her chest vibrating this morning. At the time she also felt quite lightheaded, but did not have a headache or double vision. She checked her pulse which ranged from 70-90 and her blood pressure, which was high for her at 150 systolic. These symptoms persisted for approximately 2-1/2 hours. She called out from work because she did not feel well. She came to the emergency room because, although she is had these kind of symptoms before, they have not lasted so long. She recently had a stress test and at the very end she had a period where she became very short of breath and they had to stop the test. She has not followed up yet for the results. She reports no history of lung disease and is not a smoker. She did not have any chest pain or headache during this episode. Related Data Home Medications Medication Instructions Recorded Confirmed [compound] ##0 05/09/17 04/25/18 ibuprofen 400 mg tablet 400 mg PO PRN PRN Pain (Scale 05/09/17 11/15/22 Score 1-3) ##0 testosterone 50 mg/5 gram (1 %) 1 packet transdermal QAM 03/09/18 11/15/22 transdermal gel Previous Rx's Medication Instructions Recorded hydrocortisone acetate 25 mg 25 mg RC TID #10 supp 07/20/17 rectal suppository ketoconazole 2 % topical cream 1 shine topical BID PRN ##30 11/02/17 alprazolam 0.5 mg tablet 0.5 mg PO BID PRN anxiety #60 tabs 04/04/18 Testosterone Cream 1? 0.1 ml topical .DAY #1 tube 04/25/18 [biest] 0.3 ml topical BID #3 mL 04/25/18 clobetasol 0.05 % topical ointment 1 applictn topical BID PRN atopic 04/25/18 dermatitis #30 grams fluconazole 150 mg tablet 150 mg PO QDAY #2 tabs 04/25/18 (Diflucan) levothyroxine 50 mcg tablet 100 mcg (2 x 50 mcg) PO QAM #180 04/25/18 tabs liothyronine 5 mcg tablet (Cytomel) 10 mcg (2 x 5 mcg) PO QDAY #180 04/25/18 tabs progesterone 0.3 ml topical BID #3 mL 04/25/18 cephalexin 500 mg capsule (Keflex) 500 mg PO PRN PRN recurrant uti 05/04/19 #14 caps Allergies Allergy/AdvReac Type Severity Reaction Status Date / Time [place] And Derivatives Allergy Unknown Verified 08/15/23 09:52 [CITRUS AND DERIVATIVES] codeine [CODEINE] Allergy Unknown Verified 08/15/23 09:52 crab [CRAB] Allergy Unknown Verified 08/15/23 09:52 gluten [GLUTEN] Allergy Unknown Verified 08/15/23 09:52 latex [LATEX] Allergy Unknown Verified 08/15/23 09:52 nitrofurantoin Allergy Unknown Verified 08/15/23 09:52 [From MACROBID] promethazine [From PHENERGAN] Allergy Unknown Verified 08/15/23 09:52 propofol [PROPOFOL] Allergy Unknown Verified 08/15/23 09:52 sweet potato [SWEET POTATO] Allergy Unknown Verified 08/15/23 09:52 tetracycline [TETRACYCLINE] Allergy Unknown Verified 08/15/23 09:52 morphine AdvReac Unknown Hallucinati Verified 08/15/23 09:52 ng Review of Systems <Bertha Waldron PA-C - Last Filed: 08/15/23 16:24> Review of Systems ROS Unobtainable: All systems reviewed & are unremarkable except as noted in HPI and below Patient History <Bertha Waldron PA-C - Last Filed: 08/15/23 16:24> Medical History Marixa's disease (Unknown) Chronic low back pain (Unknown) Hypothyroidism (Unknown) Surgical History Hx of shoulder surgery (2012) Hx of hysterectomy (08/2004) Hx of vein stripping (2000) Hx of cholecystectomy (2003) Hx of dilation and curettage (09/2003) Family History Father Diabetes mellitus Mother Hypertension Grandfather Stroke Grandmother Congestive heart failure Grandfather No problems noted. Grandmother Cancer Social History household members: spouse Smoking Status: Never smoker alcohol intake: current substance use type: does not use Smoking Status: Never smoker alcohol intake frequency: a few times a month Alcohol type: wine Substance Use Type: does not use Exam <Bertha Waldron PA-C - Last Filed: 08/15/23 16:24> Narrative Exam Narrative: GENERAL: 58 year old patient appears stated age. Well-developed patient, in no distress. NEURO: AOx3. HEAD: Atraumatic. Normocephalic. EYES: Pupils equal round and reactive. Extraocular motions intact. No scleral icterus. No injection or drainage. ENT: Nose without bleeding or purulent drainage. Airway patent. CARDIOVASCULAR: Regular rate and rhythm without murmurs, gallops, or rubs. No pitting edema. RESPIRATORY: Clear to auscultation. Breath sounds equal bilaterally. No wheezes, rales, or rhonchi. SKIN: No rash or erythema of visible areas Initial Vital Signs Initial Vital Signs: Vital Signs Temperature 98.1 F 08/15/23 09:40 Pulse Rate 66 08/15/23 09:40 Respiratory Rate 16 08/15/23 09:40 Blood Pressure 141/63 H 08/15/23 09:40 Pulse Oximetry 97 08/15/23 09:40 Oxygen Delivery Method Room Air 08/15/23 09:40 <Alexia Polanco DO - Last Filed: 08/20/23 04:38> Initial Vital Signs Initial Vital Signs: Vital Signs Temperature 98.1 F 08/15/23 09:40 Pulse Rate 66 08/15/23 09:40 Respiratory Rate 16 08/15/23 09:40 Blood Pressure 141/63 H 08/15/23 09:40 Pulse Oximetry 97 08/15/23 09:40 Oxygen Delivery Method Room Air 08/15/23 09:40 Course <Bertha Waldron PA-C - Last Filed: 08/15/23 16:24> Orders Ordered: ED Orders 08/15/23 10:29 XR chest 1V Stat 08/15/23 11:15 Complete Blood Count AUTO DIFF Stat Comprehensive Metabolic Panel Stat D Dimer Stat Lipase Stat NT-proBNP (BNP-Adult 18+) Stat PTT Partial Thromboplastin Randy Stat Prothrombin Time INR Stat Troponin & CK Cardiac Panel Stat 08/15/23 14:00 Trop I [Troponin I] Stat Vital Signs Vital signs: Vital Signs - 8 hr 08/15/23 09:40 08/15/23 09:42 08/15/23 09:42 Temperature 98.1 F Pulse Rate 66 67 Respiratory Rate 16 Blood Pressure 141/63 H 141/63 H Pulse Oximetry 97 97 Oxygen Delivery Method Room Air 08/15/23 10:00 08/15/23 10:00 08/15/23 10:30 Temperature Pulse Rate 64 62 Respiratory Rate 17 12 Blood Pressure 134/62 Pulse Oximetry 97 99 Oxygen Delivery Method 08/15/23 10:31 08/15/23 10:31 08/15/23 11:00 Temperature Pulse Rate 65 Respiratory Rate 12 Blood Pressure 122/58 L 126/60 Pulse Oximetry 98 Oxygen Delivery Method 08/15/23 11:00 08/15/23 11:30 08/15/23 11:30 Temperature Pulse Rate 67 68 Respiratory Rate 20 19 Blood Pressure 126/60 Pulse Oximetry 98 Oxygen Delivery Method 08/15/23 12:00 08/15/23 12:00 08/15/23 12:30 Temperature Pulse Rate 65 Respiratory Rate 17 Blood Pressure 126/59 L 126/58 L Pulse Oximetry 97 Oxygen Delivery Method 08/15/23 12:30 08/15/23 12:41 08/15/23 12:41 Temperature Pulse Rate 63 72 Respiratory Rate 13 9 L Blood Pressure 139/63 Pulse Oximetry 98 99 Oxygen Delivery Method 08/15/23 13:00 08/15/23 13:00 08/15/23 13:30 Temperature Pulse Rate 65 63 Respiratory Rate 18 11 L Blood Pressure 140/67 Pulse Oximetry 99 96 Oxygen Delivery Method 08/15/23 13:30 08/15/23 14:00 08/15/23 14:00 Temperature Pulse Rate 62 Respiratory Rate 12 Blood Pressure 133/65 139/64 Pulse Oximetry 98 Oxygen Delivery Method 08/15/23 14:30 08/15/23 14:30 Temperature Pulse Rate 68 Respiratory Rate 12 Blood Pressure 129/63 Pulse Oximetry 96 Oxygen Delivery Method <DO April Payne Last Filed: 08/20/23 04:38> Orders Ordered: ED Orders 08/15/23 10:29 XR chest 1V Stat 08/15/23 11:15 Complete Blood Count AUTO DIFF Stat Comprehensive Metabolic Panel Stat D Dimer Stat Lipase Stat NT-proBNP (BNP-Adult 18+) Stat PTT Partial Thromboplastin Randy Stat Prothrombin Time INR Stat Troponin & CK Cardiac Panel Stat 08/15/23 14:00 Trop I [Troponin I] Stat Vital Signs Vital signs: Vital Signs - 8 hr 08/15/23 09:40 08/15/23 09:42 08/15/23 09:42 Temperature 98.1 F Pulse Rate 66 67 Respiratory Rate 16 Blood Pressure 141/63 H 141/63 H Pulse Oximetry 97 97 Oxygen Delivery Method Room Air 08/15/23 10:00 08/15/23 10:00 08/15/23 10:30 Temperature Pulse Rate 64 62 Respiratory Rate 17 12 Blood Pressure 134/62 Pulse Oximetry 97 99 Oxygen Delivery Method 08/15/23 10:31 08/15/23 10:31 08/15/23 11:00 Temperature Pulse Rate 65 Respiratory Rate 12 Blood Pressure 122/58 L 126/60 Pulse Oximetry 98 Oxygen Delivery Method 08/15/23 11:00 08/15/23 11:30 08/15/23 11:30 Temperature Pulse Rate 67 68 Respiratory Rate 20 19 Blood Pressure 126/60 Pulse Oximetry 98 Oxygen Delivery Method 08/15/23 12:00 08/15/23 12:00 08/15/23 12:30 Temperature Pulse Rate 65 Respiratory Rate 17 Blood Pressure 126/59 L 126/58 L Pulse Oximetry 97 Oxygen Delivery Method 08/15/23 12:30 08/15/23 12:41 08/15/23 12:41 Temperature Pulse Rate 63 72 Respiratory Rate 13 9 L Blood Pressure 139/63 Pulse Oximetry 98 99 Oxygen Delivery Method 08/15/23 13:00 08/15/23 13:00 08/15/23 13:30 Temperature Pulse Rate 65 63 Respiratory Rate 18 11 L Blood Pressure 140/67 Pulse Oximetry 99 96 Oxygen Delivery Method 08/15/23 13:30 08/15/23 14:00 08/15/23 14:00 Temperature Pulse Rate 62 Respiratory Rate 12 Blood Pressure 133/65 139/64 Pulse Oximetry 98 Oxygen Delivery Method 08/15/23 14:30 08/15/23 14:30 Temperature Pulse Rate 68 Respiratory Rate 12 Blood Pressure 129/63 Pulse Oximetry 96 Oxygen Delivery Method MDM - Extremity (Nontraumatic) <Bertha Waldron PA-C - Last Filed: 08/15/23 16:24> Lab Data 08/15/23 11:15 08/15/23 11:15 Labs: Lab Results 08/15/23 08/15/23 Range/Units 11:15 14:00 WBC 4.9 (4.5-11.0) X10^3/uL RBC 4.22 (4.0-5.2) X10^6/uL Hgb 13.0 (12.0-16.0) g/dL Hct 37.8 (36-46) % MCV 89.5 (80-100) fL MCH 30.8 (26-34) PG MCHC 34.4 (30-36) % RDW 13.8 (11.6-14.8) % Plt Count 241 (150-400) X10^3/uL Neut % (Auto) 72.8 (50-75) % Lymph % (Auto) 20.4 L (25-40) % Branch % (Auto) 5.7 (3-14) % Eos % (Auto) 0.5 L (2-4) % Baso % (Auto) 0.6 (0-2) % Neut # (Auto) 3600 (5754-6824) /uL Lymph # (Auto) 1000 L (0683-3114) /uL Branch # (Auto) 300 (0-900) /uL Eos # (Auto) 0 (0-450) /uL Baso # (Auto) 0 (0-100) /uL PT 11.6 (10.1-12.7) SECONDS INR 1.0 (0.9-1.3) APTT 31 (26-36) SECONDS D-Dimer 321 (<500) ng/ml Sodium 137 (137-145) mmol/L Potassium 4.2 (3.4-5.1) mmol/L Chloride 104 (98-107) mmol/L Carbon Dioxide 26 (22-32) mmol/L BUN 16 (7-17) mg/dL Creatinine 0.79 (0.52-1.04) mg/dL Estimated GFR > 60 (>60) mL/min BUN/Creatinine Ratio 20.3 (6-22) Glucose 106 H (70-100) mg/dL Calcium 9.5 (8.4-10.2) mg/dL Total Bilirubin 0.5 (0.2-1.3) mg/dL AST 26 (14-36) IU/L ALT 21 (<35) IU/L Alkaline Phosphatase 97 (38-126) U/L Total Creatine Kinase 43 (30-135) U/L Troponin I < 0.012 < 0.012 (0.01-0.034) ng/mL NT-Pro-B Natriuret Pep 137 H (<125) pg/mL Total Protein 7.3 (6.3-8.2) g/dL Albumin 4.2 (3.5-5.0) g/dL Globulin 3.1 (1.7-4.1) g/dL Albumin/Globulin Ratio 1.4 (1.0-2.8) Lipase 81 (23-300) U/L Urine Dip Bedside Urine Glucose Negative Bedside Urine Bilirubin - Negative Bedside Urine Ketone - Negative Urine Specific [place] 1.010 Bedside Urine Occult Blood - Negative Bedside Urine pH 7.0 Bedside Urine Protein - Negative Bedside Urine Urobilinogen - Negative Bedside Urine Nitrite - Negative Bedside Urine Leukocytes - Negative Esterase Imaging Data Chest x-ray: Radiologist's Impression: Patient: Shira Calvin MR#: [id number] Accession Number: [id number] Procedure: XR chest 1V Ordering Provider: Alexia Polanco D.O. PROCEDURE: XR CHEST 1V INDICATIONS: chest pain, l arm tingling TECHNIQUE: One view of the chest was acquired. COMPARISON: None. FINDINGS: Surgical changes and devices: None. Lungs and pleura: Lungs are clear. No pleural effusions or pneumothorax. Mediastinum: Mediastinal contours appear normal. Heart size is normal. Bones and chest wall: No suspicious bony lesions. Overlying soft tissues appear unremarkable. IMPRESSION: No evidence acute pulmonary process. Dictated by: Dominic Bradford M.D. on 08/15/2023 at 11:15 Approved by: Dominic Bradford M.D. on 08/15/2023 at 11:16 [facility] Narrative Medical decision making narrative: Multiple etiologies for patient's symptoms considered including, but not limited to: Stroke, ACS, PE, BPPV, electrolyte abnormality, infection. Workup today did not show any clinically significant abnormality. There is no evidence of elevated troponin for ACS, D-dimer was normal, no electrolyte derangement or evidence of infection. Chest x-ray was clear. Vital signs remained within normal limits during her time in the emergency department. Long discussion with the patient and her regarding limitations of our workup in the emergency room to diagnose complex chronic conditions of the heart and lungs. Encouraged her to follow up with her primary in 2 days as scheduled for review of her recent stress test. In the meantime, she can start taking a baby aspirin daily. Patient's symptoms improved over duration of stay with above-stated therapies. Findings and discharge diagnosis discussed with patient/family followed by verbalization of understanding Return precautions discussed with patient/family whom verbalize understanding of diagnosis and plan <Alexia Polanco, DO - Last Filed: 08/20/23 04:38> Lab Data Labs: Lab Results 08/15/23 08/15/23 Range/Units 11:15 14:00 WBC 4.9 (4.5-11.0) X10^3/uL RBC 4.22 (4.0-5.2) X10^6/uL Hgb 13.0 (12.0-16.0) g/dL Hct 37.8 (36-46) % MCV 89.5 (80-100) fL MCH 30.8 (26-34) PG MCHC 34.4 (30-36) % RDW 13.8 (11.6-14.8) % Plt Count 241 (150-400) X10^3/uL Neut % (Auto) 72.8 (50-75) % Lymph % (Auto) 20.4 L (25-40) % Branch % (Auto) 5.7 (3-14) % Eos % (Auto) 0.5 L (2-4) % Baso % (Auto) 0.6 (0-2) % Neut # (Auto) 3600 (0765-9968) /uL Lymph # (Auto) 1000 L (0559-8651) /uL Branch # (Auto) 300 (0-900) /uL Eos # (Auto) 0 (0-450) /uL Baso # (Auto) 0 (0-100) /uL PT 11.6 (10.1-12.7) SECONDS INR 1.0 (0.9-1.3) APTT 31 (26-36) SECONDS D-Dimer 321 (<500) ng/ml Sodium 137 (137-145) mmol/L Potassium 4.2 (3.4-5.1) mmol/L Chloride 104 (98-107) mmol/L Carbon Dioxide 26 (22-32) mmol/L BUN 16 (7-17) mg/dL Creatinine 0.79 (0.52-1.04) mg/dL Estimated GFR > 60 (>60) mL/min BUN/Creatinine Ratio 20.3 (6-22) Glucose 106 H (70-100) mg/dL Calcium 9.5 (8.4-10.2) mg/dL Total Bilirubin 0.5 (0.2-1.3) mg/dL AST 26 (14-36) IU/L ALT 21 (<35) IU/L Alkaline Phosphatase 97 (38-126) U/L Total Creatine Kinase 43 (30-135) U/L Troponin I < 0.012 < 0.012 (0.01-0.034) ng/mL NT-Pro-B Natriuret Pep 137 H (<125) pg/mL Total Protein 7.3 (6.3-8.2) g/dL Albumin 4.2 (3.5-5.0) g/dL Globulin 3.1 (1.7-4.1) g/dL Albumin/Globulin Ratio 1.4 (1.0-2.8) Lipase 81 (23-300) U/L Urine Dip Bedside Urine Glucose Negative Bedside Urine Bilirubin - Negative Bedside Urine Ketone - Negative Urine Specific [place] 1.010 Bedside Urine Occult Blood - Negative Bedside Urine pH 7.0 Bedside Urine Protein - Negative Bedside Urine Urobilinogen - Negative Bedside Urine Nitrite - Negative Bedside Urine Leukocytes - Negative Esterase Discharge Plan Departure Patient Disposition: Home Clinical Impression: Episodic lightheadedness Instructions: Strokes: Prevention (Alternative Therapy) Activity Restrictions/Additional Instructions: *Today you were assessed for heart attack, stroke, blood clot, pneumonia and other life-threatening problems that could cause the symptoms that you experienced this morning. We did not find any evidence of these on the tests we did today. You have a follow up appointment on Tuesday with your primary care to reassess and review your stress test results. I would advise starting to take 1 baby aspirin which is 81 mg daily for stroke and heart attack prevention. I would follow up with your primary care as scheduled. In the meantime, it is okay to return to work but you should take it easy and make sure drinking plenty of water. Return to the emergency room if you develop new or worsening symptoms, chest pain, signs of stroke. *What to do: *Please continue to take your regular medications as directed. [ ] New medication prescriptions sent to your pharmacy: [ ] [ ] New medication written as a paper prescription [x] No new medications given *Please follow up with your primary care provider in 2-3 days, call for an appointment. Let them know you were seen in the Emergency Department and that we ask that you be seen in follow up. We will electronically transmit a record of today's note if your PCP is in our system *If you do not have a primary care provider please contact the [facility] Resource line at [phone]. They will ask some questions about your medical history and help get you set up with a doctor in the community. *Return to Emergency Department if you should have any new, worsening or concerning symptoms, such as [fever greater than 101 F, shaking chills, worsening pain, persistent vomiting or other concerning symptoms]. Prescriptions: No Action alprazolam 0.5 mg tablet 0.5 mg PO BID PRN (Reason: anxiety) Qty: 60 1RF levothyroxine 50 mcg tablet 100 mcg PO QAM Qty: 180 3RF liothyronine [Cytomel] 5 mcg tablet 10 mcg PO QDAY MDD 10mcg Qty: 180 3RF Rx Instructions: 1-2 daily for hypothyroidism/low T3 clobetasol 0.05 % ointment 1 applictn Topical BID PRN (Reason: atopic dermatitis) Qty: 30 3RF fluconazole [Diflucan] 150 mg tablet 150 mg PO QDAY Qty: 2 5RF progesterone cream 0.3 ml TOP BID Qty: 3 0RF Rx Instructions: Apply 0.3ml (30mg) twice a day to forearm as directed. Testosterone Cream 1? 0.1 ml TOP .DAY Qty: 1 0RF Rx Instructions: Apply 0.1ml topically once a day as directed. 1ml syringe todd tip. [biest] 0.3 ml TOP BID Qty: 3 1RF [compound] Qty: 0 ibuprofen 400 MG tablet 400 mg PO PRN PRN (Reason: Pain (Scale Score 1-3)) Qty: 0 hydrocortisone acetate 25 MG suppository 25 mg RC TID Qty: 10 3RF ketoconazole 2 % cream 1 shine Topical BID PRNQty: 30 3RF testosterone 50 mg/5 gram (1 %) gel 1 packet Transdermal QAM cephalexin [Keflex] 500 mg capsule 500 mg PO PRN PRN (Reason: recurrant uti) Qty: 14 0RF Referrals: Petey Moreira MD [Non-Staff] - Stand Alone Forms: Patient Portal/API ED Sign-out <Alexia Polanco DO - Last Filed: 08/20/23 04:38> Cosign ED Attending Cosignature Attestation: I was immediately available in the department for consultation.
== END 2023-08-15 16:35 | disposition home or self-care (01) ==
PROVIDERS: Emergency Medicine; Emergency Provider Physician Assistant
DX: R42 Dizziness and giddiness (principal); R07.9 Chest pain, unspecified; Z79.899 Other long term (current) drug therapy
CPT/HCPCS: 36415; 71045; 80053; 81003; 82550; 83690; 83880; 84484; 85025; 85379; 85610; 85730; 93005; 93010; 99284

== ENCOUNTER → 2024-01-06 08:15 | Outpatient (CLI) | payer BC, SELFPAY | LOC: RESP 08:16 | PROVIDERS: PCP Urology; Referring Provider Internal Medicine Cardiovascular Disease; Visit Provider Internal Medicine Cardiovascular Disease | DX: R06.09 Other forms of dyspnea (principal); J98.8 Other specified respiratory disorders | CPT/HCPCS: 94060; 94726; 94729 ==